=== PATIENT | male | born 1970 | race African-American/Black ===

== ENCOUNTER 2016-03-28 01:56 | Inpatient (IN) | payer OTHER ==
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
[2016-03-28 02:34] VITALS: BMI 39.5
[2016-03-28] MEDS ORDERED: chlordiazePOXIDE HCL 25 MG CAPSULE PO PRN (02:36)
[2016-03-28] MEDS ORDERED: chlordiazePOXIDE HCL 25 MG CAPSULE PO ONE (02:36)
[2016-03-28] MEDS ORDERED: diphenhydrAMINE HCL 50 MG CAPSULE PO PRN (02:37)
[2016-03-28] MEDS ORDERED: MAGNESIUM CITRATE 300 ML BOTTLE PO PRN (02:37)
[2016-03-28] MEDS ORDERED: ACETAMINOPHEN 325 MG TABLET (FP) PO PRN (02:37)
[2016-03-28] MEDS ORDERED: MAG HYDROX/AL HYDROX/SIMETH 30 ML UNIT-DOSE CUP PO PRN (02:37)
[2016-03-28] MEDS ORDERED: P-EPHED 60MG/TRIPROLIDI 2.5MG TABLET PO PRN (02:37)
[2016-03-28] MEDS ORDERED: MAGNESIUM HYDROX 2400MG/30ML ORAL SUSPENSION 30 ML CUP PO PRN (02:37)
[2016-03-28] MEDS ORDERED: MENTHOL/PHENOL 1 EACH UD MM PRN (02:37)
[2016-03-28] MEDS ORDERED: hydrOXYzine PAMOATE 50 MG CAPSULE (FP) PO PRN (02:37)
[2016-03-28] MEDS ORDERED: guaiFENesin/D-METHORPHAN HB 10 ML UNIT-DOSE CUPS PO PRN (02:37)
[2016-03-28] MEDS ORDERED: LOPERAMIDE HCL 2 MG CAPSULE PO PRN (02:37)
[2016-03-28] MEDS ORDERED: IBUPROFEN 400 MG TABLET (FP) PO PRN (02:37)
[2016-03-28] MEDS: chlordiazePOXIDE HCL 25 MG CAPSULE PO SCH ×4 (05:44→22:39)
[2016-03-28] MEDS: PRENATAL VITAMINS W/ FOLIC ACID TABLET (FP) PO SCH (10:31)
--- NOTE | 2016-03-28 15:14 | PN ---
S CIWA - CIWA Score Nausea/Vomitin-Mild Nausea/No Vomiting Muscle Tremors: 2 Anxiety: 3 Agitation: 2 Paroxysmal Sweats: 3 Orientation: 1-Uncertain about Date Tacttile Disturbances: 1-Very Mild Itch/Numbness Auditory Disturbances: 0-None Visual Disturbances: 2-Mild Sensitivity Headache: 0-None Present CIWA-Ar Total Score: 15 BHS Progress Note (SOAP) Subjective: Sweating, Body aches, Interrupted sleep, Diarrhea. Objective: 03/28/16 15:13 Vital Signs Temperature 97.7 F 03/28/16 13:59 Pulse Rate 83 03/28/16 13:59 Respiratory Rate 18 03/28/16 13:59 Blood Pressure 112/77 03/28/16 13:59 O2 Sat by Pulse Oximetry (%) NO LABS AVAILABLE YET. 03/28/16 15:13 Assessment: 03/28/16 15:13 WITHDRAWAL SYMPTOMS. Plan: CONTINUE DETOX. PRN IMMODIUM FOR DIARRHEA.
[2016-03-28] MEDS ORDERED: INFLUENZA VACCINE 45 MCG/0.5 ML (MDV 16-17) IM ONE (16:15)
[2016-03-28] MEDS: THIAMINE HCL 100 MG TABLET (FP) PO SCH (22:39)
[2016-03-28 22:59] LABS: URINE APPEARANCE CLEAR; URINE BILIRUBIN NEGATIVE (NEGATIVE); URINE BLOOD NEGATIVE (NEGATIVE); URINE COLOR YELLOW; URINE GLUCOSE (UA) NEGATIVE (NEGATIVE); URINE KETONE NEGATIVE (NEGATIVE); URINE LEUK ESTERASE NEGATIVE (NEGATIVE); URINE NITRITE NEGATIVE (NEGATIVE); URINE PROTEIN NEGATIVE (NEGATIVE); URINE UROBILINOGEN NEGATIVE E.U./dl (0.2-1.0)
[2016-03-29] MEDS: chlordiazePOXIDE HCL 25 MG CAPSULE PO SCH ×4 (05:32→22:33)
[2016-03-29 10:29] LABS: MCH 28.6 pg (25.7-33.7); MCHC 33.4 g/dl (32.0-35.9); MEAN CELL VOLUME 85.6 fl (80-96); MEAN PLT VOLUME 8.4 fl (7.5-11.1); PLATELET COUNT 212 K/MM3 (134-434); RDW 16.1 % (11.9-15.9); WHITE BLOOD COUNT 4.9 K/mm3 (4.0-10.0)
[2016-03-29] MEDS: PRENATAL VITAMINS W/ FOLIC ACID TABLET (FP) PO SCH (11:06)
[2016-03-29 11:20] LABS: ALBUMIN 3.5 g/dl (3.4-5.0); ALK PHOS 102 U/L (45-117); ANION GAP 8 (8-16); BILIRUBIN,TOTAL 1.2 mg/dL (0.2-1.0); CALCIUM 8.8 mg/dL (8.5-10.1); CO2 26 mmol/L (21-32); CREATININE 1.2 mg/dL (0.7-1.3); GLUCOSE,RANDOM 85 mg/dL (74-106); SGOT/AST 35 U/L (15-37); SGPT/ALT 44 U/L (12-78); TOT PROT 7.4 g/dl (6.4-8.2)
--- NOTE | 2016-03-29 14:33 | PN ---
S CIWA - CIWA Score Nausea/Vomitin-No Nausea/No Vomiting Muscle Tremors: 3 Anxiety: 3 Agitation: 3 Paroxysmal Sweats: 3 Orientation: 0-Oriented Tacttile Disturbances: 0-None Auditory Disturbances: 0-None Visual Disturbances: 0-None Headache: 0-None Present CIWA-Ar Total Score: 12 S Progress Note (SOAP) Subjective: ANXIETY,TREMORS,SWEATING,INTERRUPTED SLEEP,RESTLESS Objective: 03/29/16 14:32 Vital Signs - 8 hr 03/29/16 10:49 Temperature 98.6 F Pulse Rate 70 Respiratory 20 Rate Blood Pressure 140/86 Laboratory Tests 03/28/16 03/29/16 03/29/16 22:45 07:15 07:15 WBC 4.9 RBC 5.15 Hgb 14.7 Hct 44.0 MCV 85.6 MCHC 33.4 RDW 16.1 H D Plt Count 212 D MPV 8.4 Sodium 138 Potassium 3.7 Chloride 104 Carbon Dioxide 26 Anion Gap 8 BUN 15 D Creatinine 1.2 Creat Clearance w eGFR > 60 Random Glucose 85 Calcium 8.8 Total Bilirubin 1.2 H D AST 35 D ALT 44 D Alkaline Phosphatase 102 Total Protein 7.4 Albumin 3.5 Urine Color Yellow Urine Appearance Clear Urine pH 5.0 Ur Specific [place] 1.028 Urine Protein Negative Urine Glucose (UA) Negative Urine Ketones Negative Urine Blood Negative Urine Nitrite Negative Urine Bilirubin Negative Urine Urobilinogen Negative Ur Leukocyte Esterase Negative LABS NOTED Assessment: 03/29/16 14:32 WITHDRAWAL SX. Plan: CONTINUE DETOX
[2016-03-29 15:28] LABS: HIV 1 & 2 AB NEGATIVE; HIV 1 AGp24 NEGATIVE
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
[2016-03-29] MEDS: QUEtiapine FUMARATE 50 MG TABLET PO SCH (22:33)
[2016-03-29] MEDS: THIAMINE HCL 100 MG TABLET (FP) PO SCH (22:33)
[2016-03-30] MEDS: chlordiazePOXIDE 5 MG CAPSULE PO SCH ×4 (05:24→22:28)
[2016-03-30] MEDS: PRENATAL VITAMINS W/ FOLIC ACID TABLET (FP) PO SCH (10:14)
--- NOTE | 2016-03-30 12:43 | PN ---
BHS Progress Note (SOAP) Subjective: SWEATING,INTERRUPTED SLEEP,RESTLESS Objective: 03/30/16 12:42 Vital Signs - 8 hr 03/30/16 03/30/16 06:47 10:54 Temperature 98.1 F 96.4 F L Pulse Rate 80 80 Respiratory 16 20 Rate Blood Pressure 113/80 123/78 Assessment: 03/30/16 12:42 WITHDRAWAL SX. Plan: CONTINUE DETOX
[2016-03-30] MEDS: THIAMINE HCL 100 MG TABLET (FP) PO SCH (22:27)
[2016-03-30] MEDS: QUEtiapine FUMARATE 50 MG TABLET PO SCH (22:28)
[2016-03-31] MEDS: chlordiazePOXIDE HCL 10 MG CAPSULE PO SCH ×4 (05:45→22:21)
[2016-03-31] MEDS: PRENATAL VITAMINS W/ FOLIC ACID TABLET (FP) PO SCH (10:10)
--- NOTE | 2016-03-31 11:34 | PN ---
S Progress Note (SOAP) Subjective: ALERT,IRRITABLE,ANXIOUS,INTERRUPTED SLEEP, Objective: 03/31/16 11:33 Vital Signs Temperature 96.3 F L 03/31/16 09:50 Pulse Rate 84 03/31/16 09:50 Respiratory Rate 18 03/31/16 09:50 Blood Pressure 101/69 03/31/16 09:50 O2 Sat by Pulse Oximetry (%) Assessment: 03/31/16 11:33 WITHDRAWAL SYMPTOM Plan: CONTINUE DETOX,DISCHARGE IN AM
[2016-03-31] MEDS: QUEtiapine FUMARATE 50 MG TABLET PO SCH (22:21)
[2016-03-31] MEDS: THIAMINE HCL 100 MG TABLET (FP) PO SCH (22:21)
--- NOTE | 2016-04-01 08:44 | PN ---
S Progress Note (SOAP) Subjective: ALERT,NO COMPLAINT Objective: 04/01/16 08:43 Vital Signs Temperature 97.9 F 04/01/16 06:32 Pulse Rate 87 04/01/16 06:32 Respiratory Rate 18 04/01/16 06:32 Blood Pressure 123/82 04/01/16 06:32 O2 Sat by Pulse Oximetry (%) Assessment: 04/01/16 08:43 DETOX COMPLETED,NO WITHDRAWAL SYMPTOM Plan: DISCHARGE TODAY,FOLLOW UP WITH AFTER CARE PROGRAM ARRANGEMENT
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
[2016-04-01 09:49] VITALS: BP 125/84; PULSE 78; TEMP 96.6
== END 2016-04-01 09:00 | disposition home or self-care (01) | DRG 774 ==
LOC: YASAS 01:56 → Y3N 02:00
PROVIDERS: ADMIT Internal Medicine; ATTEND Internal Medicine
PROC: HZ2ZZZZ Detoxification Services for Substance Abuse Treatment (ICD-10-PCS; principal; 2016-03-28)
DX: F10.230 Alcohol dependence with withdrawal, uncomplicated (principal); F14.20 Cocaine dependence, uncomplicated; F19.24 Other psychoactive substance dependence with psychoactive substance-induced mood disorder; F33.9 Major depressive disorder, recurrent, unspecified; J45.909 Unspecified asthma, uncomplicated; G47.00 Insomnia, unspecified; E66.9 Obesity, unspecified; Z68.39 Body mass index [BMI] 39.0-39.9, adult; Z86.79 Personal history of other diseases of the circulatory system; Z91.5 Personal history of self-harm
CPT/HCPCS: 36415; 80053; 81003; 85027; 86593; 87389; 93005; 93010

== ENCOUNTER 2016-05-09 01:05 | Inpatient (IN) | payer OTHER ==
[2016-05-09 01:21] VITALS: BMI 41.3
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
[2016-05-09] MEDS ORDERED: ACETAMINOPHEN 325 MG TABLET (FP) PO PRN (01:31)
[2016-05-09] MEDS ORDERED: hydrOXYzine PAMOATE 50 MG CAPSULE (FP) PO PRN (01:31)
[2016-05-09] MEDS ORDERED: MAG HYDROX/AL HYDROX/SIMETH 30 ML UNIT-DOSE CUP PO PRN (01:31)
[2016-05-09] MEDS ORDERED: MAGNESIUM HYDROX 2400MG/30ML ORAL SUSPENSION 30 ML CUP PO PRN (01:31)
[2016-05-09] MEDS ORDERED: IBUPROFEN 400 MG TABLET (FP) PO PRN (01:31)
[2016-05-09] MEDS ORDERED: P-EPHED 60MG/TRIPROLIDI 2.5MG TABLET PO PRN (01:31)
[2016-05-09] MEDS ORDERED: chlordiazePOXIDE HCL 25 MG CAPSULE PO PRN (01:31)
[2016-05-09] MEDS ORDERED: diphenhydrAMINE HCL 50 MG CAPSULE PO PRN (01:31)
[2016-05-09] MEDS ORDERED: guaiFENesin/D-METHORPHAN HB 10 ML UNIT-DOSE CUPS PO PRN (01:31)
[2016-05-09] MEDS ORDERED: LOPERAMIDE HCL 2 MG CAPSULE PO PRN (01:31)
[2016-05-09] MEDS ORDERED: MENTHOL/PHENOL 1 EACH UD MM PRN (01:31)
[2016-05-09] MEDS ORDERED: MAGNESIUM CITRATE 300 ML BOTTLE PO PRN (01:31)
[2016-05-09] MEDS ORDERED: ALBUTEROL SO4 6.7 GM HFA INHALER IH PRN (01:37)
[2016-05-09] MEDS: chlordiazePOXIDE HCL 25 MG CAPSULE PO SCH ×4 (05:40→22:24)
[2016-05-09] MEDS: PRENATAL VITAMINS W/ FOLIC ACID TABLET (FP) PO SCH (10:05)
--- NOTE | 2016-05-09 15:07 | PN ---
[facility]HS CIWA - CIWA Score Nausea/Vomitin-Mild Nausea/No Vomiting Muscle Tremors: 3 Anxiety: 4-Mod. Anxious/Guarded Agitation: 3 Paroxysmal Sweats: 1-Minimal Palms Moist Orientation: 0-Oriented Tacttile Disturbances: 0-None Auditory Disturbances: 1-Very Mild Visual Disturbances: 0-None Headache: 2-Mild CIWA-Ar Total Score: 15 BHS Progress Note (SOAP) Subjective: Sweating, nausea, tremor, interrupted sleep, anxious Objective: 05/09/16 15:05 Last Vital Signs Temp Pulse Resp BP Pulse Ox 97.5 F L 80 18 110/75 05/09/16 13:37 05/09/16 13:37 05/09/16 13:37 05/09/16 13:37 Lab results from 03/29/16 noted; admission labs scheduled for 05/10/16 Assessment: 05/09/16 15:06 Withdrawal symptoms Plan: Continue detox
[2016-05-09] MEDS: THIAMINE HCL 100 MG TABLET (FP) PO SCH (22:23)
[2016-05-10] MEDS: chlordiazePOXIDE HCL 25 MG CAPSULE PO SCH ×4 (05:42→23:35)
[2016-05-10 09:55] LABS: MCH 27.6 pg (25.7-33.7); MCHC 32.5 g/dl (32.0-35.9); MEAN CELL VOLUME 84.9 fl (80-96); MEAN PLT VOLUME 8.2 fl (7.5-11.1); PLATELET COUNT 177 K/MM3 (134-434); RDW 15.7 % (11.9-15.9); WHITE BLOOD COUNT 4.1 K/mm3 (4.0-10.0)
[2016-05-10 09:59] LABS: ALBUMIN 3.4 g/dl (3.4-5.0); ANION GAP 8 (8-16); CALCIUM 8.9 mg/dL (8.5-10.1); CO2 28 mmol/L (21-32); CREATININE 1.3 mg/dL (0.7-1.3); GLUCOSE,RANDOM 88 mg/dL (74-106); SGOT/AST 36 U/L (15-37); SGPT/ALT 53 U/L (12-78)
[2016-05-10 10:01] LABS: ALK PHOS 101 U/L (45-117); BILIRUBIN,TOTAL 0.9 mg/dL (0.2-1.0)
[2016-05-10] MEDS: PRENATAL VITAMINS W/ FOLIC ACID TABLET (FP) PO SCH (10:15)
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
--- NOTE | 2016-05-10 12:13 | EKG ---
Test Reason : Blood Pressure : / mmHG Vent. Rate : 061 BPM Atrial Rate : 061 BPM P-R Int : 218 ms QRS Dur : 080 ms QT Int : 436 ms P-R-T Axes : 022 051 034 degrees QTc Int : 438 ms SINUS RHYTHM WITH 1ST DEGREE A-V BLOCK NONSPECIFIC T WAVE ABNORMALITY ABNORMAL ECG NO PREVIOUS ECGS AVAILABLE Confirmed by BRODERICK MATHEWS MD ([id number]) on 05/10/2016 12:13:00 PM Referred By: Confirmed By:BRODERICK MATHEWS MD
[2016-05-10] MEDS: CITALOPRAM HYDROBROMIDE 20 MG TABLET (FP) PO SCH (12:29)
--- NOTE | 2016-05-10 14:18 | PN ---
[facility] CIWA - CIWA Score Nausea/Vomitin-No Nausea/No Vomiting Muscle Tremors: 4-Moderate,w/Arms Extend Anxiety: 3 Agitation: 3 Paroxysmal Sweats: 3 Orientation: 0-Oriented Tacttile Disturbances: 0-None Auditory Disturbances: 0-None Visual Disturbances: 0-None Headache: 0-None Present CIWA-Ar Total Score: 13 BHS Progress Note (SOAP) Subjective: sweating,interrupted sleep,restless,tremors,anxiety Objective: 05/10/16 14:17 Vital Signs - 8 hr 05/10/16 05/10/16 06:24 10:20 Temperature 96.4 F L 96.3 F L Pulse Rate 62 63 Respiratory 18 20 Rate Blood Pressure 116/86 125/87 Laboratory Tests 05/10/16 05/10/16 05/10/16 07:00 07:00 07:00 WBC 4.1 RBC 5.24 Hgb 14.4 Hct 44.5 MCV 84.9 MCHC 32.5 RDW 15.7 Plt Count 177 MPV 8.2 Sodium 140 Potassium 3.5 Chloride 104 Carbon Dioxide 28 Anion Gap 8 BUN 13 Creatinine 1.3 Creat Clearance w eGFR > 60 Random Glucose 88 Calcium 8.9 Total Bilirubin 0.9 D AST 36 ALT 53 D Alkaline Phosphatase 101 Total Protein 7.0 Albumin 3.4 RPR Titer Nonreactive labs noted Assessment: 05/10/16 14:17 withdrawal sx. Plan: continue detox
[2016-05-10] MEDS: QUEtiapine FUMARATE 100 MG TABLET (FP) PO SCH (23:35)
[2016-05-10] MEDS: THIAMINE HCL 100 MG TABLET (FP) PO SCH (23:36)
[2016-05-11] MEDS: chlordiazePOXIDE 5 MG CAPSULE PO SCH ×4 (06:06→22:04)
--- NOTE | 2016-05-11 09:57 | PN ---
BHS Progress Note (SOAP) Subjective: sweating,interrupted sleep,restless Objective: 05/11/16 09:56 Vital Signs - 8 hr 05/11/16 05/11/16 03:30 09:52 Temperature 97.1 F L Pulse Rate 60 Respiratory 18 18 Rate Blood Pressure 122/92 Laboratory Tests 05/10/16 05/10/16 05/10/16 07:00 07:00 07:00 WBC 4.1 RBC 5.24 Hgb 14.4 Hct 44.5 MCV 84.9 MCHC 32.5 RDW 15.7 Plt Count 177 MPV 8.2 Sodium 140 Potassium 3.5 Chloride 104 Carbon Dioxide 28 Anion Gap 8 BUN 13 Creatinine 1.3 Creat Clearance w eGFR > 60 Random Glucose 88 Calcium 8.9 Total Bilirubin 0.9 D AST 36 ALT 53 D Alkaline Phosphatase 101 Total Protein 7.0 Albumin 3.4 Urine Color Urine Appearance Urine pH Ur Specific [place] Urine Protein Urine Glucose (UA) Urine Clinitest Urine Ketones Urine Blood Urine Nitrite Urine Bilirubin Urine Ictotest Prot Sulfosalicylic Acd Urine Urobilinogen Ur Leukocyte Esterase RPR Titer Nonreactive 05/10/16 12:30 WBC RBC Hgb Hct MCV MCHC RDW Plt Count MPV Sodium Potassium Chloride Carbon Dioxide Anion Gap BUN Creatinine Creat Clearance w eGFR Random Glucose Calcium Total Bilirubin AST ALT Alkaline Phosphatase Total Protein Albumin Urine Color Cancelled Urine Appearance Cancelled Urine pH Cancelled Ur Specific [place] Cancelled Urine Protein Cancelled Urine Glucose (UA) Cancelled Urine Clinitest Cancelled Urine Ketones Cancelled Urine Blood Cancelled Urine Nitrite Cancelled Urine Bilirubin Cancelled Urine Ictotest Cancelled Prot Sulfosalicylic Acd Cancelled Urine Urobilinogen Cancelled Ur Leukocyte Esterase Cancelled RPR Titer labs noted Assessment: 05/11/16 09:57 withdrawal sx. Plan: continue detox
[2016-05-11] MEDS: CITALOPRAM HYDROBROMIDE 20 MG TABLET (FP) PO SCH (10:10)
[2016-05-11] MEDS: PRENATAL VITAMINS W/ FOLIC ACID TABLET (FP) PO SCH (10:10)
[2016-05-11] MEDS: QUEtiapine FUMARATE 100 MG TABLET (FP) PO SCH (22:05)
[2016-05-11] MEDS: THIAMINE HCL 100 MG TABLET (FP) PO SCH (22:05)
[2016-05-12] MEDS ORDERED: chlordiazePOXIDE HCL 10 MG CAPSULE PO SCH (05:00)
[2016-05-12 06:45] VITALS: BP 100/68; PULSE 91; TEMP 96.7
--- NOTE | 2016-05-12 17:28 | DS ---
[facility] Detox Discharge Summary Admission Date: 05/09/16 Discharge Date: 05/12/16 - History Present History: Alcohol Dependence, Cocaine Dependence Pertinent Past History: asthma depression - Physical Exam Results Vital Signs: Vital Signs Temperature 96.7 F L 05/12/16 06:45 Pulse Rate 91 H 05/12/16 06:45 Respiratory Rate 18 05/12/16 06:45 Blood Pressure 100/68 05/12/16 06:45 O2 Sat by Pulse Oximetry (%) Pertinent Admission Physical Exam Findings: Withdrawal sx. Laboratory Tests 05/10/16 05/10/16 05/10/16 07:00 07:00 07:00 WBC 4.1 RBC 5.24 Hgb 14.4 Hct 44.5 MCV 84.9 MCHC 32.5 RDW 15.7 Plt Count 177 MPV 8.2 Sodium 140 Potassium 3.5 Chloride 104 Carbon Dioxide 28 Anion Gap 8 BUN 13 Creatinine 1.3 Creat Clearance w eGFR > 60 Random Glucose 88 Calcium 8.9 Total Bilirubin 0.9 D AST 36 ALT 53 D Alkaline Phosphatase 101 Total Protein 7.0 Albumin 3.4 Urine Color Urine Appearance Urine pH Ur Specific [place] Urine Protein Urine Glucose (UA) Urine Clinitest Urine Ketones Urine Blood Urine Nitrite Urine Bilirubin Urine Ictotest Prot Sulfosalicylic Acd Urine Urobilinogen Ur Leukocyte Esterase RPR Titer Nonreactive 05/10/16 12:30 WBC RBC Hgb Hct MCV MCHC RDW Plt Count MPV Sodium Potassium Chloride Carbon Dioxide Anion Gap BUN Creatinine Creat Clearance w eGFR Random Glucose Calcium Total Bilirubin AST ALT Alkaline Phosphatase Total Protein Albumin Urine Color Cancelled Urine Appearance Cancelled Urine pH Cancelled Ur Specific [place] Cancelled Urine Protein Cancelled Urine Glucose (UA) Cancelled Urine Clinitest Cancelled Urine Ketones Cancelled Urine Blood Cancelled Urine Nitrite Cancelled Urine Bilirubin Cancelled Urine Ictotest Cancelled Prot Sulfosalicylic Acd Cancelled Urine Urobilinogen Cancelled Ur Leukocyte Esterase Cancelled RPR Titer labs noted - Treatment Hospital Course: Detox Protocol Followed, Detoxed Safely, Responded well, Discharged Condition Good, Rehab Referral Accepted - Medication Discharge Medications: Ambulatory Orders Quetiapine Fumarate [Seroquel] 100 mg PO HS 05/09/16 Citalopram Hydrobromide [Celexa -] 20 mg PO DAILY #30 tablet 05/12/16 Quetiapine Fumarate [Seroquel] 100 mg PO HS #30 tablet 05/12/16 - Diagnosis (1) Alcohol dependence with uncomplicated withdrawal Status: Acute (2) Cocaine dependence Status: Acute Qualifiers: Substance use status: uncomplicated Qualified Code(s): F14.20 - Cocaine dependence, uncomplicated (3) Drug-induced mood disorder Status: Acute (4) Asthma Status: Chronic Qualifiers: Asthma severity: mild intermittent Asthma complication type: uncomplicated Qualified Code(s): J45.20 - Mild intermittent asthma, uncomplicated (5) MDD (major depressive disorder) Status: Chronic (6) Obesity Status: Chronic Qualifiers: Obesity type: due to excess calories Obesity severity: morbid Qualified Code(s): E66.01 - Morbid (severe) obesity due to excess calories (7) Insomnia Status: Chronic Qualifiers: Insomnia type: alcohol-induced Qualified Code(s): F10.982 - Alcohol use, unspecified with alcohol-induced sleep disorder - AMA Did Patient Leave Against Medical Advice: No
== END 2016-05-12 09:22 | disposition home or self-care (01) | DRG 774 ==
LOC: YASAS 01:05 → Y3N 01:40
PROVIDERS: ADMIT Internal Medicine; ATTEND Psychiatry & Neurology Psychiatry
PROC: HZ2ZZZZ Detoxification Services for Substance Abuse Treatment (ICD-10-PCS; principal; 2016-05-12)
DX: F10.230 Alcohol dependence with withdrawal, uncomplicated (principal); F14.20 Cocaine dependence, uncomplicated; F33.9 Major depressive disorder, recurrent, unspecified; F10.282 Alcohol dependence with alcohol-induced sleep disorder; F19.24 Other psychoactive substance dependence with psychoactive substance-induced mood disorder; E66.01 Morbid (severe) obesity due to excess calories; Z68.41 Body mass index [BMI] 40.0-44.9, adult
CPT/HCPCS: 36415; 80053; 85027; 86593; 93005; 93010

== ENCOUNTER 2016-11-01 08:19 | Inpatient (IN) | payer OTHER ==
[2016-11-01 08:48] VITALS: BMI 39.4
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
[2016-11-01] MEDS ORDERED: hydrOXYzine PAMOATE 50 MG CAPSULE (FP) PO PRN (11:22)
[2016-11-01] MEDS ORDERED: diphenhydrAMINE HCL 50 MG CAPSULE PO PRN (11:22)
[2016-11-01] MEDS ORDERED: ACETAMINOPHEN 325 MG TABLET (FP) PO PRN (11:22)
[2016-11-01] MEDS ORDERED: chlordiazePOXIDE HCL 25 MG CAPSULE PO PRN (11:22)
[2016-11-01] MEDS ORDERED: MENTHOL/PHENOL 1 EACH UD MM PRN (11:22)
[2016-11-01] MEDS ORDERED: LOPERAMIDE HCL 2 MG CAPSULE PO PRN (11:22)
[2016-11-01] MEDS ORDERED: MAGNESIUM CITRATE 300 ML BOTTLE PO PRN (11:22)
[2016-11-01] MEDS ORDERED: IBUPROFEN 400 MG TABLET (FP) PO PRN (11:22)
[2016-11-01] MEDS ORDERED: P-EPHED 60MG/TRIPROLIDI 2.5MG TABLET PO PRN (11:22)
[2016-11-01] MEDS ORDERED: guaiFENesin/D-METHORPHAN HB 10 ML UNIT-DOSE CUPS PO PRN (11:22)
[2016-11-01] MEDS ORDERED: MAG HYDROX/AL HYDROX/SIMETH 30 ML UNIT-DOSE CUP PO PRN (11:22)
[2016-11-01] MEDS ORDERED: MAGNESIUM HYDROX 2400MG/30ML ORAL SUSPENSION 30 ML CUP PO PRN (11:22)
[2016-11-01] MEDS ORDERED: chlordiazePOXIDE HCL 25 MG CAPSULE PO ONE (12:47)
[2016-11-01] MEDS: chlordiazePOXIDE HCL 25 MG CAPSULE PO SCH ×3 (13:21→22:25)
[2016-11-01 15:26] LABS: MCH 28.3 pg (25.7-33.7); MCHC 33.3 g/dl (32.0-35.9); MEAN PLT VOLUME 8.7 fl (7.5-11.1); PLATELET COUNT 244 K/MM3 (134-434); RDW 15.7 % (11.9-15.9); WHITE BLOOD COUNT 6.7 K/mm3 (4.0-10.0)
[2016-11-01 15:32] LABS: ALK PHOS 99 U/L (45-117); ANION GAP 10 (8-16); BILIRUBIN,TOTAL 1.4 mg/dL (0.2-1.0); CALCIUM 8.8 mg/dL (8.5-10.1); CO2 27 mmol/L (21-32); CREATININE 1.3 mg/dL (0.7-1.3); GLUCOSE,RANDOM 67 mg/dL (74-106); SGOT/AST 35 U/L (15-37); SGPT/ALT 53 U/L (12-78)
[2016-11-01] MEDS: THIAMINE HCL 100 MG TABLET (FP) PO SCH (22:25)
[2016-11-01 22:47] LABS: URINE APPEARANCE CLEAR; URINE BILIRUBIN NEGATIVE (NEGATIVE); URINE BLOOD NEGATIVE (NEGATIVE); URINE COLOR YELLOW; URINE GLUCOSE (UA) NEGATIVE (NEGATIVE); URINE KETONE NEGATIVE (NEGATIVE); URINE LEUK ESTERASE NEGATIVE (NEGATIVE); URINE NITRITE NEGATIVE (NEGATIVE); URINE PROTEIN NEGATIVE (NEGATIVE); URINE UROBILINOGEN NEGATIVE mg/dL (0.2-1.0)
[2016-11-02] MEDS: chlordiazePOXIDE HCL 25 MG CAPSULE PO SCH ×4 (05:43→22:28)
[2016-11-02 09:42] LABS: HIV 1 & 2 AB NEGATIVE; HIV 1 AGp24 NEGATIVE
--- NOTE | 2016-11-02 11:04 | PN ---
[facility] CIWA - CIWA Score Nausea/Vomitin Muscle Tremors: 3 Anxiety: 3 Agitation: 2 Paroxysmal Sweats: 1-Minimal Palms Moist Orientation: 0-Oriented Tacttile Disturbances: 1-Very Mild Itch/Numbness Auditory Disturbances: 1-Very Mild Visual Disturbances: 0-None Headache: 2-Mild CIWA-Ar Total Score: 16 S Progress Note (SOAP) Subjective: ALERT,IRRITABLE,ANXIOUS,INTERRUPTED SLEEP,TREMOR Objective: 11/02/16 11:01 Vital Signs Temperature 97.7 F 11/02/16 06:00 Pulse Rate 75 11/02/16 06:00 Respiratory Rate 18 11/02/16 06:00 Blood Pressure 114/57 11/02/16 06:00 O2 Sat by Pulse Oximetry (%) EKG SINUS BRADYCARDIA 54/MIN NO CHEST PAIN,NO SOB,NO DIZZINESS Laboratory Last Values WBC 6.7 K/mm3 (4.0-10.0) D 11/01/16 11:15 RBC 5.43 M/mm3 (4.00-5.60) 11/01/16 11:15 Hgb 15.3 GM/dL (11.7-16.9) 11/01/16 11:15 Hct 46.1 % (35.4-49) 11/01/16 11:15 MCV 85.0 fl (80-96) 11/01/16 11:15 MCH 28.3 pg (25.7-33.7) 11/01/16 11:15 MCHC 33.3 g/dl (32.0-35.9) 11/01/16 11:15 RDW 15.7 % (11.9-15.9) 11/01/16 11:15 Plt Count 244 K/MM3 (134-434) D 11/01/16 11:15 MPV 8.7 fl (7.5-11.1) 11/01/16 11:15 Sodium 136 mmol/L (136-145) 11/01/16 11:15 Potassium 3.8 mmol/L (3.5-5.1) 11/01/16 11:15 Chloride 99 mmol/L (98-107) 11/01/16 11:15 Carbon Dioxide 27 mmol/L (21-32) 11/01/16 11:15 Anion Gap 10 (8-16) 11/01/16 11:15 BUN 19 mg/dL (7-18) H D 11/01/16 11:15 Creatinine 1.3 mg/dL (0.7-1.3) 11/01/16 11:15 Creat Clearance w eGFR 59.97 (>60) 11/01/16 11:15 Random Glucose 67 mg/dL (74-106) L D 11/01/16 11:15 Calcium 8.8 mg/dL (8.5-10.1) 11/01/16 11:15 Total Bilirubin 1.4 mg/dL (0.2-1.0) H D 11/01/16 11:15 AST 35 U/L (15-37) 11/01/16 11:15 ALT 53 U/L (12-78) 11/01/16 11:15 Alkaline Phosphatase 99 U/L (45-117) 11/01/16 11:15 Total Protein 8.0 g/dl (6.4-8.2) 11/01/16 11:15 Albumin 4.0 g/dl (3.4-5.0) 11/01/16 11:15 Urine Color Yellow 11/01/16 22:20 Urine Appearance Clear 11/01/16 22:20 Urine pH 5.0 (5.0-8.0) 11/01/16 22:20 Urine Protein Negative (NEGATIVE) 11/01/16 22:20 Urine Glucose (UA) Negative (NEGATIVE) 11/01/16 22:20 Urine Ketones Negative (NEGATIVE) 11/01/16 22:20 Urine Blood Negative (NEGATIVE) 11/01/16 22:20 Urine Nitrite Negative (NEGATIVE) 11/01/16 22:20 Urine Bilirubin Negative (NEGATIVE) 11/01/16 22:20 Urine Urobilinogen Negative mg/dL (0.2-1.0) 11/01/16 22:20 Ur Leukocyte Esterase Negative (NEGATIVE) 11/01/16 22:20 RPR Titer Nonreactive (NONREACTIVE) 11/01/16 11:15 Hepatitis C Antibody 0.1 s/co ratio (0.0-0.9) 11/01/16 11:15 HIV 1&2 Antibody Screen Negative 11/01/16 10:50 HIV P24 Antigen Negative 11/01/16 10:50 Assessment: 11/02/16 11:03 WITHDRAWAL SYMPTOM Plan: CONTINUE DETOX
[2016-11-02] MEDS: PRENATAL VITAMINS W/ FOLIC ACID TABLET (FP) PO SCH (11:10)
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
[2016-11-02] MEDS: QUEtiapine FUMARATE 50 MG TABLET PO SCH (22:27)
[2016-11-02] MEDS: THIAMINE HCL 100 MG TABLET (FP) PO SCH (22:28)
[2016-11-03] MEDS: chlordiazePOXIDE HCL 25 MG CAPSULE PO SCH (06:00)
[2016-11-03] MEDS: chlordiazePOXIDE 5 MG CAPSULE PO SCH ×3 (10:36→22:59)
[2016-11-03] MEDS: PRENATAL VITAMINS W/ FOLIC ACID TABLET (FP) PO SCH (10:36)
[2016-11-03] MEDS: CITALOPRAM HYDROBROMIDE 10 MG TABLET (FP) PO SCH (10:36)
--- NOTE | 2016-11-03 11:14 | PN ---
S CIWA - CIWA Score Nausea/Vomitin Muscle Tremors: 3 Anxiety: 3 Agitation: 2 Paroxysmal Sweats: 1-Minimal Palms Moist Orientation: 0-Oriented Tacttile Disturbances: 1-Very Mild Itch/Numbness Auditory Disturbances: 1-Very Mild Visual Disturbances: 0-None Headache: 2-Mild CIWA-Ar Total Score: 16 BHS Progress Note (SOAP) Subjective: ALERT,IRRITABLE,ANXIOUS,INTERRUPTED SLEEP,TREMOR Objective: 11/03/16 11:13 Vital Signs Temperature 96.8 F L 11/03/16 09:58 Pulse Rate 57 L 11/03/16 09:58 Respiratory Rate 18 11/03/16 09:58 Blood Pressure 114/77 11/03/16 09:58 O2 Sat by Pulse Oximetry (%) 11/03/16 11:13 Laboratory Last Values WBC 6.7 K/mm3 (4.0-10.0) D 11/01/16 11:15 RBC 5.43 M/mm3 (4.00-5.60) 11/01/16 11:15 Hgb 15.3 GM/dL (11.7-16.9) 11/01/16 11:15 Hct 46.1 % (35.4-49) 11/01/16 11:15 MCV 85.0 fl (80-96) 11/01/16 11:15 MCH 28.3 pg (25.7-33.7) 11/01/16 11:15 MCHC 33.3 g/dl (32.0-35.9) 11/01/16 11:15 RDW 15.7 % (11.9-15.9) 11/01/16 11:15 Plt Count 244 K/MM3 (134-434) D 11/01/16 11:15 MPV 8.7 fl (7.5-11.1) 11/01/16 11:15 Sodium 136 mmol/L (136-145) 11/01/16 11:15 Potassium 3.8 mmol/L (3.5-5.1) 11/01/16 11:15 Chloride 99 mmol/L (98-107) 11/01/16 11:15 Carbon Dioxide 27 mmol/L (21-32) 11/01/16 11:15 Anion Gap 10 (8-16) 11/01/16 11:15 BUN 19 mg/dL (7-18) H D 11/01/16 11:15 Creatinine 1.3 mg/dL (0.7-1.3) 11/01/16 11:15 Creat Clearance w eGFR 59.97 (>60) 11/01/16 11:15 Random Glucose 67 mg/dL (74-106) L D 11/01/16 11:15 Calcium 8.8 mg/dL (8.5-10.1) 11/01/16 11:15 Total Bilirubin 1.4 mg/dL (0.2-1.0) H D 11/01/16 11:15 AST 35 U/L (15-37) 11/01/16 11:15 ALT 53 U/L (12-78) 11/01/16 11:15 Alkaline Phosphatase 99 U/L (45-117) 11/01/16 11:15 Total Protein 8.0 g/dl (6.4-8.2) 11/01/16 11:15 Albumin 4.0 g/dl (3.4-5.0) 11/01/16 11:15 Urine Color Yellow 11/01/16 22:20 Urine Appearance Clear 11/01/16 22:20 Urine pH 5.0 (5.0-8.0) 11/01/16 22:20 Ur Specific [place] 1.025 (1.005-1.025) 11/01/16 22:20 Urine Protein Negative (NEGATIVE) 11/01/16 22:20 Urine Glucose (UA) Negative (NEGATIVE) 11/01/16 22:20 Urine Ketones Negative (NEGATIVE) 11/01/16 22:20 Urine Blood Negative (NEGATIVE) 11/01/16 22:20 Urine Nitrite Negative (NEGATIVE) 11/01/16 22:20 Urine Bilirubin Negative (NEGATIVE) 11/01/16 22:20 Urine Urobilinogen Negative mg/dL (0.2-1.0) 11/01/16 22:20 Ur Leukocyte Esterase Negative (NEGATIVE) 11/01/16 22:20 RPR Titer Nonreactive (NONREACTIVE) 11/01/16 11:15 Hepatitis C Antibody 0.1 s/co ratio (0.0-0.9) 11/01/16 11:15 HIV 1&2 Antibody Screen Negative 11/01/16 10:50 HIV P24 Antigen Negative 11/01/16 10:50 Assessment: 11/03/16 11:13 WITHDRAWAL SYMPTOM 11/03/16 11:14 Plan: CONTINUE DETOX
--- NOTE | 2016-11-03 14:52 | EKG ---
Test Reason : Blood Pressure : / mmHG Vent. Rate : 054 BPM Atrial Rate : 054 BPM P-R Int : 206 ms QRS Dur : 088 ms QT Int : 452 ms P-R-T Axes : 008 024 021 degrees QTc Int : 428 ms SINUS BRADYCARDIA OTHERWISE NORMAL ECG WHEN COMPARED WITH ECG OF 09-MAY-2016 02:22, NO SIGNIFICANT CHANGE WAS FOUND Confirmed by KRYSTEN PEREZ MD ([id number]) on 11/03/2016 2:51:50 PM Referred By: Confirmed By:KRYSTEN PEREZ MD
[2016-11-03] MEDS: QUEtiapine FUMARATE 50 MG TABLET PO SCH (22:59)
[2016-11-03] MEDS: THIAMINE HCL 100 MG TABLET (FP) PO SCH (22:59)
[2016-11-04] MEDS: chlordiazePOXIDE 5 MG CAPSULE PO SCH (05:15)
[2016-11-04 10:21] VITALS: BP 140/69; PULSE 61; TEMP 97.7
--- NOTE | 2016-11-04 10:37 | PN ---
S Progress Note (SOAP) Subjective: alert,no complaint Objective: 11/04/16 10:35 Vital Signs Temperature 97.7 F 11/04/16 10:21 Pulse Rate 61 11/04/16 10:21 Respiratory Rate 18 11/04/16 10:21 Blood Pressure 140/69 11/04/16 10:21 O2 Sat by Pulse Oximetry (%) Assessment: 11/04/16 10:36 stable for discharge Plan: discharge today,follow up with after care program [facility] arrangement
--- NOTE | 2016-11-04 10:42 | DS ---
[facility] Detox Discharge Summary Admission Date: 11/01/16 Discharge Date: 11/04/16 - History Present History: Alcohol Dependence, Cocaine Dependence Additional Comments: follow up with after care program as arrangement Pertinent Past History: asthma obesity - Physical Exam Results Vital Signs: Vital Signs Temperature 97.7 F 11/04/16 10:21 Pulse Rate 61 11/04/16 10:21 Respiratory Rate 18 11/04/16 10:21 Blood Pressure 140/69 11/04/16 10:21 O2 Sat by Pulse Oximetry (%) Pertinent Admission Physical Exam Findings: withdrawal symptom - Treatment Hospital Course: Detox Protocol Followed, Detoxed Safely, Responded well, Discharged Condition Good, Rehab Referral Accepted Patient has Accepted a Rehab Referral to: [facility] - Medication Discharge Medications: Ambulatory Orders Citalopram Hydrobromide [Celexa -] 20 mg PO DAILY #30 tablet 05/12/16 Quetiapine Fumarate [Seroquel] 100 mg PO HS #30 tablet 05/12/16 Albuterol Sulfate Inhaler - [Ventolin Hfa Inhaler -] 1 - 2 inh PO QID PRN Citalopram Hydrobromide [Celexa -] 20 mg PO DAILY #30 tablet 11/02/16 Quetiapine Fumarate [Seroquel] 100 mg PO HS #30 tablet 11/02/16 - Diagnosis (1) Alcohol dependence with uncomplicated withdrawal Current Visit: Yes Status: Acute (2) Cocaine dependence Current Visit: Yes Status: Acute Qualifiers: Substance use status: uncomplicated Qualified Code(s): F14.20 - Cocaine dependence, uncomplicated (3) Drug-induced mood disorder Current Visit: Yes Status: Acute (4) Insomnia Current Visit: Yes Status: Acute Qualifiers: Insomnia type: alcohol-induced Qualified Code(s): F10.982 - Alcohol use, unspecified with alcohol-induced sleep disorder (5) Asthma Current Visit: Yes Status: Chronic Qualifiers: Asthma severity: mild intermittent Asthma complication type: uncomplicated Qualified Code(s): J45.20 - Mild intermittent asthma, uncomplicated (6) Obesity Current Visit: Yes Status: Chronic Qualifiers: Obesity type: due to excess calories - AMA Did Patient Leave Against Medical Advice: No
[2016-11-04] MEDS: PRENATAL VITAMINS W/ FOLIC ACID TABLET (FP) PO SCH (10:50)
[2016-11-04] MEDS: CITALOPRAM HYDROBROMIDE 10 MG TABLET (FP) PO SCH (10:50)
[2016-11-04] MEDS ORDERED: chlordiazePOXIDE HCL 10 MG CAPSULE PO SCH (11:00)
== END 2016-11-04 10:55 | disposition home or self-care (01) | DRG 774 ==
LOC: YASAS 08:19 → Y6N 12:31
PROVIDERS: ADMIT Internal Medicine; ATTEND Internal Medicine
PROC: HZ2ZZZZ Detoxification Services for Substance Abuse Treatment (ICD-10-PCS; principal; 2016-11-01)
DX: F10.230 Alcohol dependence with withdrawal, uncomplicated (principal); F14.20 Cocaine dependence, uncomplicated; F19.24 Other psychoactive substance dependence with psychoactive substance-induced mood disorder; F33.9 Major depressive disorder, recurrent, unspecified; G47.00 Insomnia, unspecified; J45.20 Mild intermittent asthma, uncomplicated; E66.9 Obesity, unspecified; Z68.39 Body mass index [BMI] 39.0-39.9, adult; R00.1 Bradycardia, unspecified; Z87.891 Personal history of nicotine dependence; Z91.5 Personal history of self-harm
CPT/HCPCS: 36415; 80053; 81003; 85027; 86593; 86803; 87389; 93005; 93010

== ENCOUNTER 2017-04-10 08:36 | Inpatient (IN) | payer OTHER ==
[2017-04-10 09:05] VITALS: BMI 42.5
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
[2017-04-10] MEDS ORDERED: guaiFENesin/D-METHORPHAN HB 10 ML UNIT-DOSE CUPS PO PRN (09:37)
[2017-04-10] MEDS ORDERED: LOPERAMIDE HCL 2 MG CAPSULE PO PRN (09:37)
[2017-04-10] MEDS ORDERED: IBUPROFEN 400 MG TABLET (FP) PO PRN (09:37)
[2017-04-10] MEDS ORDERED: chlordiazePOXIDE HCL 25 MG CAPSULE PO ONE ×2 (09:37→12:30)
[2017-04-10] MEDS ORDERED: chlordiazePOXIDE HCL 25 MG CAPSULE PO PRN (09:37)
[2017-04-10] MEDS ORDERED: MAG HYDROX/AL HYDROX/SIMETH 30 ML UNIT-DOSE CUP PO PRN (09:37)
[2017-04-10] MEDS ORDERED: MAGNESIUM HYDROX 2400MG/30ML ORAL SUSPENSION 30 ML CUP PO PRN (09:37)
[2017-04-10] MEDS ORDERED: MAGNESIUM CITRATE 300 ML BOTTLE PO PRN (09:37)
[2017-04-10] MEDS ORDERED: ACETAMINOPHEN 325 MG TABLET (FP) PO PRN (09:37)
[2017-04-10] MEDS ORDERED: MENTHOL/PHENOL 1 EACH UD MM PRN (09:37)
[2017-04-10] MEDS ORDERED: hydrOXYzine PAMOATE 50 MG CAPSULE (FP) PO PRN (09:37)
[2017-04-10] MEDS ORDERED: P-EPHED 60MG/TRIPROLIDI 2.5MG TABLET PO PRN (09:37)
[2017-04-10] MEDS ORDERED: ALBUTEROL SO4 18 GM HFA INHALER IH PRN (09:39)
[2017-04-10] MEDS: PRENATAL VITAMINS W/ FOLIC ACID TABLET (FP) PO SCH (12:24)
[2017-04-10 16:37] LABS: URINE APPEARANCE CLEAR; URINE BILIRUBIN NEGATIVE (NEGATIVE); URINE BLOOD NEGATIVE (NEGATIVE); URINE COLOR YELLOW; URINE GLUCOSE (UA) NEGATIVE (NEGATIVE); URINE KETONE NEGATIVE (NEGATIVE); URINE LEUK ESTERASE NEGATIVE (NEGATIVE); URINE NITRITE NEGATIVE (NEGATIVE); URINE PROTEIN NEGATIVE (NEGATIVE)
[2017-04-10] MEDS: chlordiazePOXIDE HCL 25 MG CAPSULE PO SCH ×2 (17:15→22:16)
[2017-04-10] MEDS: THIAMINE HCL 100 MG TABLET (FP) PO SCH (22:16)
[2017-04-11] MEDS: chlordiazePOXIDE HCL 25 MG CAPSULE PO SCH ×4 (05:20→22:10)
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
[2017-04-11] MEDS: PRENATAL VITAMINS W/ FOLIC ACID TABLET (FP) PO SCH (10:12)
[2017-04-11] MEDS: BACITRACIN 0.9 GM PACKET TP SCH ×2 (10:12→22:10)
--- NOTE | 2017-04-11 10:39 | EKG ---
Test Reason : Blood Pressure : / mmHG Vent. Rate : 061 BPM Atrial Rate : 061 BPM P-R Int : 192 ms QRS Dur : 090 ms QT Int : 414 ms P-R-T Axes : 003 037 008 degrees QTc Int : 416 ms NORMAL SINUS RHYTHM NONSPECIFIC T WAVE ABNORMALITY ABNORMAL ECG WHEN COMPARED WITH ECG OF 01-NOV-2016 13:07, T WAVE INVERSION NOW EVIDENT IN ANTERIOR LEADS Confirmed by BRODERICK MATHEWS MD ([id number]) on 04/11/2017 10:39:28 AM Referred By: Confirmed By:BRODERICK MATHEWS MD
[2017-04-11] MEDS: CITALOPRAM HYDROBROMIDE 20 MG TABLET (FP) PO SCH (11:52)
--- NOTE | 2017-04-11 12:19 | PN ---
S CIWA - CIWA Score Nausea/Vomitin-No Nausea/No Vomiting Muscle Tremors: 4-Moderate,w/Arms Extend Anxiety: 4-Mod. Anxious/Guarded Agitation: 4-Moderately Restless Paroxysmal Sweats: 1-Minimal Palms Moist Orientation: 0-Oriented Tacttile Disturbances: 3-Moderate Itch/Numb/Burn Auditory Disturbances: 0-None Visual Disturbances: 0-None Headache: 0-None Present CIWA-Ar Total Score: 16 BHS Progress Note (SOAP) Subjective: ANXIETY,SWEATS, FATIGUE. Objective: 04/11/17 12:18 Vital Signs Temperature 97.6 F 04/11/17 09:20 Pulse Rate 76 04/11/17 09:20 Respiratory Rate 18 04/11/17 09:20 Blood Pressure 107/67 04/11/17 09:20 O2 Sat by Pulse Oximetry (%) Laboratory Last Values Urine Color Yellow 04/10/17 15:33 Urine Appearance Clear 04/10/17 15:33 Urine pH 5.0 (5.0-8.0) 04/10/17 15:33 Ur Specific [place] 1.021 (1.001-1.035) 04/10/17 15:33 Urine Protein Negative (NEGATIVE) 04/10/17 15:33 Urine Glucose (UA) Negative (NEGATIVE) 04/10/17 15:33 Urine Ketones Negative (NEGATIVE) 04/10/17 15:33 Urine Blood Negative (NEGATIVE) 04/10/17 15:33 Urine Nitrite Negative (NEGATIVE) 04/10/17 15:33 Urine Bilirubin Negative (NEGATIVE) 04/10/17 15:33 Urine Urobilinogen 2.0 mg/dL (0.2-1.0) 04/10/17 15:33 Ur Leukocyte Esterase Negative (NEGATIVE) 04/10/17 15:33 Assessment: 04/11/17 12:18 WITHDRAWAL SX Plan: CONTINUE DETOX
[2017-04-11] MEDS: THIAMINE HCL 100 MG TABLET (FP) PO SCH (22:10)
[2017-04-11] MEDS: QUEtiapine FUMARATE 100 MG TABLET (FP) PO SCH (22:10)
[2017-04-12] MEDS: chlordiazePOXIDE HCL 25 MG CAPSULE PO SCH ×2 (05:44→10:22)
[2017-04-12] MEDS: CITALOPRAM HYDROBROMIDE 20 MG TABLET (FP) PO SCH (10:22)
[2017-04-12] MEDS: PRENATAL VITAMINS W/ FOLIC ACID TABLET (FP) PO SCH (10:22)
[2017-04-12] MEDS: BACITRACIN 0.9 GM PACKET TP SCH ×2 (10:22→22:11)
--- NOTE | 2017-04-12 10:57 | PN ---
S CIWA - CIWA Score Nausea/Vomitin-No Nausea/No Vomiting Muscle Tremors: 4-Moderate,w/Arms Extend Anxiety: 4-Mod. Anxious/Guarded Agitation: 4-Moderately Restless Paroxysmal Sweats: 1-Minimal Palms Moist Orientation: 0-Oriented Tacttile Disturbances: 3-Moderate Itch/Numb/Burn Auditory Disturbances: 0-None Visual Disturbances: 0-None Headache: 0-None Present CIWA-Ar Total Score: 16 BHS Progress Note (SOAP) Subjective: ANXIETY,SWEATS,SLIGHT TREMORS. Objective: 04/12/17 10:56 Vital Signs Temperature 97.7 F 04/12/17 10:09 Pulse Rate 63 04/12/17 10:09 Respiratory Rate 18 04/12/17 10:09 Blood Pressure 115/75 04/12/17 10:09 O2 Sat by Pulse Oximetry (%) Laboratory Last Values Urine Color Yellow 04/10/17 15:33 Urine Appearance Clear 04/10/17 15:33 Urine pH 5.0 (5.0-8.0) 04/10/17 15:33 Ur Specific [place] 1.021 (1.001-1.035) 04/10/17 15:33 Urine Protein Negative (NEGATIVE) 04/10/17 15:33 Urine Glucose (UA) Negative (NEGATIVE) 04/10/17 15:33 Urine Ketones Negative (NEGATIVE) 04/10/17 15:33 Urine Blood Negative (NEGATIVE) 04/10/17 15:33 Urine Nitrite Negative (NEGATIVE) 04/10/17 15:33 Urine Bilirubin Negative (NEGATIVE) 04/10/17 15:33 Urine Urobilinogen 2.0 mg/dL (0.2-1.0) 04/10/17 15:33 Ur Leukocyte Esterase Negative (NEGATIVE) 04/10/17 15:33 Assessment: 04/12/17 10:57 WITHDRAWAL SX Plan: CONTINUE DETOX INCREASE PO FLUIDS.
[2017-04-12] MEDS: chlordiazePOXIDE 5 MG CAPSULE PO SCH ×2 (17:04→22:11)
[2017-04-12] MEDS: QUEtiapine FUMARATE 100 MG TABLET (FP) PO SCH (22:11)
[2017-04-12] MEDS: THIAMINE HCL 100 MG TABLET (FP) PO SCH (22:11)
[2017-04-13] MEDS: chlordiazePOXIDE 5 MG CAPSULE PO SCH ×2 (06:07→10:11)
[2017-04-13] MEDS: BACITRACIN 0.9 GM PACKET TP SCH ×2 (10:11→22:14)
[2017-04-13] MEDS: PRENATAL VITAMINS W/ FOLIC ACID TABLET (FP) PO SCH (10:11)
[2017-04-13] MEDS: CITALOPRAM HYDROBROMIDE 20 MG TABLET (FP) PO SCH (10:11)
[2017-04-13 10:18] LABS: HEMATOCRIT 45.9 % (35.4-49); HEMOGLOBIN 14.8 GM/dL (11.7-16.9); MCH 27.7 pg (25.7-33.7); MCHC 32.2 g/dl (32.0-35.9); MEAN PLT VOLUME 8.7 fl (7.5-11.1); PLATELET COUNT 236 K/MM3 (134-434); RBC 5.34 M/mm3 (4.00-5.60); RDW 16.1 % (11.9-15.9)
[2017-04-13 10:41] LABS: CHLORIDE 102 mmol/L (98-107); POTASSIUM 3.8 mmol/L (3.5-5.1); SODIUM 140 mmol/L (136-145)
[2017-04-13 10:54] LABS: ALBUMIN 3.3 g/dl (3.4-5.0); ALK PHOS 94 U/L (45-117); ANION GAP 11 (8-16); BILIRUBIN,TOTAL 0.5 mg/dL (0.2-1.0); BLOOD UREA NITROGEN 13 mg/dL (7-18); CALCIUM 8.7 mg/dL (8.5-10.1); CO2 27 mmol/L (21-32); CREATININE 1.3 mg/dL (0.7-1.3); GLUCOSE,RANDOM 122 mg/dL (74-106); SGOT/AST 36 U/L (15-37); SGPT/ALT 62 U/L (12-78); TOT PROT 7.5 g/dl (6.4-8.2)
--- NOTE | 2017-04-13 11:23 | PN ---
BHS Progress Note (SOAP) Subjective: DECREASED ANXIETY,SWEATS. Objective: 04/13/17 11:23 Vital Signs 04/13/17 04/13/17 04/13/17 04:03 06:11 09:15 Temperature 97 F L 97.3 F L Pulse Rate 58 L 72 Respiratory 18 20 18 Rate Blood Pressure 108/68 122/83 Laboratory Last Values WBC 5.0 K/mm3 (4.0-10.0) 04/13/17 07:00 RBC 5.34 M/mm3 (4.00-5.60) 04/13/17 07:00 Hgb 14.8 GM/dL (11.7-16.9) 04/13/17 07:00 Hct 45.9 % (35.4-49) 04/13/17 07:00 MCV 86.0 fl (80-96) 04/13/17 07:00 MCH 27.7 pg (25.7-33.7) 04/13/17 07:00 MCHC 32.2 g/dl (32.0-35.9) 04/13/17 07:00 RDW 16.1 % (11.9-15.9) H 04/13/17 07:00 Plt Count 236 K/MM3 (134-434) 04/13/17 07:00 MPV 8.7 fl (7.5-11.1) 04/13/17 07:00 Sodium 140 mmol/L (136-145) 04/13/17 07:00 Potassium 3.8 mmol/L (3.5-5.1) 04/13/17 07:00 Chloride 102 mmol/L (98-107) 04/13/17 07:00 Carbon Dioxide 27 mmol/L (21-32) 04/13/17 07:00 Anion Gap 11 (8-16) 04/13/17 07:00 BUN 13 mg/dL (7-18) D 04/13/17 07:00 Creatinine 1.3 mg/dL (0.7-1.3) 04/13/17 07:00 Creat Clearance w eGFR 59.97 (>60) 04/13/17 07:00 Random Glucose 122 mg/dL (74-106) H D 04/13/17 07:00 Calcium 8.7 mg/dL (8.5-10.1) 04/13/17 07:00 Total Bilirubin 0.5 mg/dL (0.2-1.0) D 04/13/17 07:00 AST 36 U/L (15-37) 04/13/17 07:00 ALT 62 U/L (12-78) 04/13/17 07:00 Alkaline Phosphatase 94 U/L (45-117) 04/13/17 07:00 Total Protein 7.5 g/dl (6.4-8.2) 04/13/17 07:00 Albumin 3.3 g/dl (3.4-5.0) L 04/13/17 07:00 Urine Color Yellow 04/10/17 15:33 Urine Appearance Clear 04/10/17 15:33 Urine pH 5.0 (5.0-8.0) 04/10/17 15:33 Ur Specific [place] 1.021 (1.001-1.035) 04/10/17 15:33 Urine Protein Negative (NEGATIVE) 04/10/17 15:33 Urine Glucose (UA) Negative (NEGATIVE) 04/10/17 15:33 Urine Ketones Negative (NEGATIVE) 04/10/17 15:33 Urine Blood Negative (NEGATIVE) 04/10/17 15:33 Urine Nitrite Negative (NEGATIVE) 04/10/17 15:33 Urine Bilirubin Negative (NEGATIVE) 04/10/17 15:33 Urine Urobilinogen 2.0 mg/dL (0.2-1.0) 04/10/17 15:33 Ur Leukocyte Esterase Negative (NEGATIVE) 04/10/17 15:33 Assessment: 04/13/17 11:24 WITHDRAWAL SX Plan: CONTINUE DETOX
[2017-04-13] MEDS: chlordiazePOXIDE HCL 10 MG CAPSULE PO SCH ×2 (17:26→22:14)
[2017-04-13] MEDS: QUEtiapine FUMARATE 100 MG TABLET (FP) PO SCH (22:14)
[2017-04-13] MEDS: THIAMINE HCL 100 MG TABLET (FP) PO SCH (22:14)
[2017-04-14] MEDS: chlordiazePOXIDE HCL 10 MG CAPSULE PO SCH ×2 (05:13→10:17)
[2017-04-14 09:06] VITALS: BP 112/75; PULSE 75; TEMP 98.8
[2017-04-14] MEDS: BACITRACIN 0.9 GM PACKET TP SCH (10:17)
[2017-04-14] MEDS: CITALOPRAM HYDROBROMIDE 20 MG TABLET (FP) PO SCH (10:17)
[2017-04-14] MEDS: PRENATAL VITAMINS W/ FOLIC ACID TABLET (FP) PO SCH (10:17)
--- NOTE | 2017-04-14 10:50 | DS ---
[facility] Detox Discharge Summary Admission Date: 04/10/17 Discharge Date: 04/14/17 - History Present History: Alcohol Dependence Additional Comments: DETOX COMPLETED.REFERRED TO REHAB TODAY. Pertinent Past History: SEE DX BELOW - Physical Exam Results Vital Signs: Vital Signs Temperature 98.8 F 04/14/17 09:05 Pulse Rate 75 04/14/17 09:05 Respiratory Rate 18 04/14/17 09:05 Blood Pressure 112/75 04/14/17 09:05 O2 Sat by Pulse Oximetry (%) Pertinent Admission Physical Exam Findings: WITHDRAWAL SX Laboratory Last Values WBC 5.0 K/mm3 (4.0-10.0) 04/13/17 07:00 RBC 5.34 M/mm3 (4.00-5.60) 04/13/17 07:00 Hgb 14.8 GM/dL (11.7-16.9) 04/13/17 07:00 Hct 45.9 % (35.4-49) 04/13/17 07:00 MCV 86.0 fl (80-96) 04/13/17 07:00 MCH 27.7 pg (25.7-33.7) 04/13/17 07:00 MCHC 32.2 g/dl (32.0-35.9) 04/13/17 07:00 RDW 16.1 % (11.9-15.9) H 04/13/17 07:00 Plt Count 236 K/MM3 (134-434) 04/13/17 07:00 MPV 8.7 fl (7.5-11.1) 04/13/17 07:00 Sodium 140 mmol/L (136-145) 04/13/17 07:00 Potassium 3.8 mmol/L (3.5-5.1) 04/13/17 07:00 Chloride 102 mmol/L (98-107) 04/13/17 07:00 Carbon Dioxide 27 mmol/L (21-32) 04/13/17 07:00 Anion Gap 11 (8-16) 04/13/17 07:00 BUN 13 mg/dL (7-18) D 04/13/17 07:00 Creatinine 1.3 mg/dL (0.7-1.3) 04/13/17 07:00 Creat Clearance w eGFR 59.97 (>60) 04/13/17 07:00 Random Glucose 122 mg/dL (74-106) H D 04/13/17 07:00 Calcium 8.7 mg/dL (8.5-10.1) 04/13/17 07:00 Total Bilirubin 0.5 mg/dL (0.2-1.0) D 04/13/17 07:00 AST 36 U/L (15-37) 04/13/17 07:00 ALT 62 U/L (12-78) 04/13/17 07:00 Alkaline Phosphatase 94 U/L (45-117) 04/13/17 07:00 Total Protein 7.5 g/dl (6.4-8.2) 04/13/17 07:00 Albumin 3.3 g/dl (3.4-5.0) L 04/13/17 07:00 Urine Color Yellow 04/10/17 15:33 Urine Appearance Clear 04/10/17 15:33 Urine pH 5.0 (5.0-8.0) 04/10/17 15:33 Ur Specific [place] 1.021 (1.001-1.035) 04/10/17 15:33 Urine Protein Negative (NEGATIVE) 04/10/17 15:33 Urine Glucose (UA) Negative (NEGATIVE) 04/10/17 15:33 Urine Ketones Negative (NEGATIVE) 04/10/17 15:33 Urine Blood Negative (NEGATIVE) 04/10/17 15:33 Urine Nitrite Negative (NEGATIVE) 04/10/17 15:33 Urine Bilirubin Negative (NEGATIVE) 04/10/17 15:33 Urine Urobilinogen 2.0 mg/dL (0.2-1.0) 04/10/17 15:33 Ur Leukocyte Esterase Negative (NEGATIVE) 04/10/17 15:33 RPR Titer Nonreactive (NONREACTIVE) 04/13/17 07:00 HIV 1&2 Antibody Screen Negative 04/13/17 07:00 HIV P24 Antigen Negative 04/13/17 07:00 - Treatment Hospital Course: Detox Protocol Followed, Detoxed Safely, Responded well, Discharged Condition Good, Rehab Referral Accepted Patient has Accepted a Rehab Referral to: [address] - Medication Discharge Medications: Ambulatory Orders Citalopram Hydrobromide [Celexa -] 20 mg PO DAILY #30 tablet 05/12/16 Quetiapine Fumarate [Seroquel] 100 mg PO HS #30 tablet 05/12/16 Albuterol Sulfate Inhaler - [Ventolin Hfa Inhaler -] 1 - 2 inh PO QID PRN Citalopram Hydrobromide [Celexa -] 20 mg PO DAILY #30 tablet 11/02/16 Quetiapine Fumarate [Seroquel] 100 mg PO HS #30 tablet 11/02/16 - Diagnosis (1) Abrasion of left lower leg Current Visit: Yes Status: Acute Qualifiers: Encounter type: subsequent encounter Qualified Code(s): S80.812D - Abrasion , left lower leg, subsequent encounter (2) Alcohol dependence with uncomplicated withdrawal Current Visit: Yes Status: Acute (3) Asthma Current Visit: Yes Status: Chronic Qualifiers: Asthma severity: mild Asthma complication type: uncomplicated (4) Obesity Current Visit: Yes Status: Chronic Qualifiers: Obesity type: due to excess calories - AMA Did Patient Leave Against Medical Advice: No
== END 2017-04-14 12:48 | disposition other institution (70) | DRG 774 ==
LOC: YASAS 08:36 → Y3N 10:27
PROVIDERS: ADMIT Internal Medicine; ATTEND Internal Medicine
PROC: HZ2ZZZZ Detoxification Services for Substance Abuse Treatment (ICD-10-PCS; principal; 2017-04-10)
DX: F10.230 Alcohol dependence with withdrawal, uncomplicated (principal); F14.20 Cocaine dependence, uncomplicated; F33.9 Major depressive disorder, recurrent, unspecified; F10.282 Alcohol dependence with alcohol-induced sleep disorder; F19.24 Other psychoactive substance dependence with psychoactive substance-induced mood disorder; E66.09 Other obesity due to excess calories; J45.909 Unspecified asthma, uncomplicated; S80.812D Abrasion, left lower leg, subsequent encounter; X58.XXXD Exposure to other specified factors, subsequent encounter; Z87.828 Personal history of other (healed) physical injury and trauma; Z87.891 Personal history of nicotine dependence; Z91.5 Personal history of self-harm; Z68.41 Body mass index [BMI] 40.0-44.9, adult
CPT/HCPCS: 36415; 80053; 81003; 85027; 86593; 87389; 93005; 93010

== ENCOUNTER 2017-04-14 13:15 | Inpatient (IN) | payer OTHER ==
[2017-04-14 13:31] VITALS: BMI 42.5
[2017-04-14] MEDS ORDERED: ACETAMINOPHEN 325 MG TABLET (FP) PO PRN (16:54)
[2017-04-14] MEDS ORDERED: NICOTINE 14 MG/24 HOURS TOPICAL PATCH TD PRN (16:54)
[2017-04-14] MEDS ORDERED: MAGNESIUM CITRATE 300 ML BOTTLE PO PRN (16:54)
[2017-04-14] MEDS ORDERED: IBUPROFEN 400 MG TABLET (FP) PO PRN (16:54)
[2017-04-14] MEDS ORDERED: MAG HYDROX/AL HYDROX/SIMETH 30 ML UNIT-DOSE CUP PO PRN (16:54)
[2017-04-14] MEDS ORDERED: MENTHOL/PHENOL 1 EACH UD MM PRN (16:54)
[2017-04-14] MEDS ORDERED: MAGNESIUM HYDROX 2400MG/30ML ORAL SUSPENSION 30 ML CUP PO PRN (16:54)
[2017-04-14] MEDS ORDERED: NICOTINE POLACRILEX 2 MG GUM BUC PRN (16:54)
[2017-04-14] MEDS ORDERED: guaiFENesin/D-METHORPHAN HB 10 ML UNIT-DOSE CUPS PO PRN (16:54)
[2017-04-14] MEDS ORDERED: P-EPHED 60MG/TRIPROLIDI 2.5MG TABLET PO PRN (16:54)
[2017-04-14] MEDS ORDERED: LOPERAMIDE HCL 2 MG CAPSULE PO PRN (16:54)
--- NOTE | 2017-04-14 16:54 | HP ---
[facility] Rehab Assess/Revision - Admission History Admitted to Rehab from: [facility] Date of Admission to Rehab: 04/14/17 - Vital signs Vital Signs: Vital Signs Period Temp Pulse Resp BP Sys/Arredondo Pulse Ox Last 24 Hr 97.5 F 71 20 125/68 - Findings Detox History & Physical reviewed: Yes Concur with findings: Yes Comments/Additional Findings: transferred from detox to rehab admission as per protocol
--- NOTE | 2017-04-14 16:54 | HP ---
[facility] Rehab Assess/Revision - Vital signs Vital Signs: Vital Signs Period Temp Pulse Resp BP Sys/Arredondo Pulse Ox Last 24 Hr 97.5 F 71 20 125/68 Inpatient Rehab Admission - Initial Determination Are CD services needed?: Yes Free of communicable disease: Yes Not in need of hospitalization: Yes - Rehab Admission Criteria Previous failed treatment: Yes Poor recovery environment: Yes Comorbidities: Yes Lacks judgement: No Patient is meeting Inpatient Rehab admission criteria:: Yes
[2017-04-14] MEDS ORDERED: ALBUTEROL SO4 18 GM HFA INHALER IH PRN (16:56)
[2017-04-14] MEDS: THIAMINE HCL 100 MG TABLET (FP) PO SCH (21:24)
[2017-04-14] MEDS: QUEtiapine FUMARATE 100 MG TABLET (FP) PO SCH (21:24)
[2017-04-15] MEDS ORDERED: hydrOXYzine PAMOATE 50 MG CAPSULE (FP) PO ONE (02:10)
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
[2017-04-15] MEDS: CITALOPRAM HYDROBROMIDE 20 MG TABLET (FP) PO SCH (10:38)
[2017-04-15] MEDS: PRENATAL VITAMINS W/ FOLIC ACID TABLET (FP) PO SCH (10:38)
[2017-04-15] MEDS ORDERED: FLU VACCINE QUAD 60 MCG/0.5 ML (MDV 17-18) IM ONE (12:00)
[2017-04-15] MEDS: QUEtiapine FUMARATE 100 MG TABLET (FP) PO SCH (21:40)
[2017-04-15] MEDS: THIAMINE HCL 100 MG TABLET (FP) PO SCH (21:40)
[2017-04-16] MEDS: PRENATAL VITAMINS W/ FOLIC ACID TABLET (FP) PO SCH (10:28)
[2017-04-16] MEDS: CITALOPRAM HYDROBROMIDE 20 MG TABLET (FP) PO SCH (10:28)
[2017-04-16] MEDS: THIAMINE HCL 100 MG TABLET (FP) PO SCH (21:17)
[2017-04-16] MEDS: QUEtiapine FUMARATE 100 MG TABLET (FP) PO SCH (21:17)
[2017-04-17] MEDS: PRENATAL VITAMINS W/ FOLIC ACID TABLET (FP) PO SCH (10:16)
[2017-04-17] MEDS: CITALOPRAM HYDROBROMIDE 20 MG TABLET (FP) PO SCH (10:16)
[2017-04-17] MEDS: QUEtiapine FUMARATE 100 MG TABLET (FP) PO SCH (21:26)
[2017-04-17] MEDS: THIAMINE HCL 100 MG TABLET (FP) PO SCH (21:26)
[2017-04-18] MEDS: PRENATAL VITAMINS W/ FOLIC ACID TABLET (FP) PO SCH (10:04)
[2017-04-18] MEDS: CITALOPRAM HYDROBROMIDE 20 MG TABLET (FP) PO SCH (10:04)
[2017-04-18] MEDS: THIAMINE HCL 100 MG TABLET (FP) PO SCH (21:50)
[2017-04-18] MEDS: QUEtiapine FUMARATE 100 MG TABLET (FP) PO SCH (21:50)
[2017-04-19] MEDS: PRENATAL VITAMINS W/ FOLIC ACID TABLET (FP) PO SCH (10:19)
[2017-04-19] MEDS: CITALOPRAM HYDROBROMIDE 20 MG TABLET (FP) PO SCH (10:19)
[2017-04-19] MEDS: QUEtiapine FUMARATE 100 MG TABLET (FP) PO SCH (21:22)
[2017-04-19] MEDS: THIAMINE HCL 100 MG TABLET (FP) PO SCH (21:22)
[2017-04-20] MEDS: CITALOPRAM HYDROBROMIDE 20 MG TABLET (FP) PO SCH (10:10)
[2017-04-20] MEDS: PRENATAL VITAMINS W/ FOLIC ACID TABLET (FP) PO SCH (10:10)
[2017-04-20] MEDS: THIAMINE HCL 100 MG TABLET (FP) PO SCH (21:31)
[2017-04-20] MEDS: QUEtiapine FUMARATE 100 MG TABLET (FP) PO SCH (21:31)
[2017-04-21] MEDS: PRENATAL VITAMINS W/ FOLIC ACID TABLET (FP) PO SCH (10:13)
[2017-04-21] MEDS: CITALOPRAM HYDROBROMIDE 20 MG TABLET (FP) PO SCH (10:13)
[2017-04-21] MEDS: THIAMINE HCL 100 MG TABLET (FP) PO SCH (21:31)
[2017-04-21] MEDS: QUEtiapine FUMARATE 100 MG TABLET (FP) PO SCH (21:31)
[2017-04-22] MEDS: CITALOPRAM HYDROBROMIDE 20 MG TABLET (FP) PO SCH (10:26)
[2017-04-22] MEDS: PRENATAL VITAMINS W/ FOLIC ACID TABLET (FP) PO SCH (10:26)
[2017-04-22] MEDS: QUEtiapine FUMARATE 100 MG TABLET (FP) PO SCH (21:26)
[2017-04-22] MEDS: THIAMINE HCL 100 MG TABLET (FP) PO SCH (21:26)
[2017-04-23] MEDS: CITALOPRAM HYDROBROMIDE 20 MG TABLET (FP) PO SCH (10:06)
[2017-04-23] MEDS: PRENATAL VITAMINS W/ FOLIC ACID TABLET (FP) PO SCH (10:06)
[2017-04-23] MEDS: THIAMINE HCL 100 MG TABLET (FP) PO SCH (21:22)
[2017-04-23] MEDS: QUEtiapine FUMARATE 100 MG TABLET (FP) PO SCH (21:22)
[2017-04-24] MEDS: PRENATAL VITAMINS W/ FOLIC ACID TABLET (FP) PO SCH (09:59)
[2017-04-24] MEDS: CITALOPRAM HYDROBROMIDE 20 MG TABLET (FP) PO SCH (09:59)
[2017-04-24] MEDS: THIAMINE HCL 100 MG TABLET (FP) PO SCH (21:31)
[2017-04-24] MEDS: QUEtiapine FUMARATE 100 MG TABLET (FP) PO SCH (21:31)
[2017-04-25] MEDS: CITALOPRAM HYDROBROMIDE 20 MG TABLET (FP) PO SCH (10:26)
[2017-04-25] MEDS: PRENATAL VITAMINS W/ FOLIC ACID TABLET (FP) PO SCH (10:26)
[2017-04-25] MEDS: THIAMINE HCL 100 MG TABLET (FP) PO SCH (21:30)
[2017-04-25] MEDS: QUEtiapine FUMARATE 100 MG TABLET (FP) PO SCH (21:31)
[2017-04-26 06:58] VITALS: TEMP 98.4
[2017-04-26] MEDS: CITALOPRAM HYDROBROMIDE 20 MG TABLET (FP) PO SCH (10:21)
[2017-04-26] MEDS: PRENATAL VITAMINS W/ FOLIC ACID TABLET (FP) PO SCH (10:21)
[2017-04-26] MEDS: THIAMINE HCL 100 MG TABLET (FP) PO SCH (22:02)
[2017-04-26] MEDS: QUEtiapine FUMARATE 100 MG TABLET (FP) PO SCH (22:02)
[2017-04-27 06:58] VITALS: BP 119/70; PULSE 57
[2017-04-27] MEDS: PRENATAL VITAMINS W/ FOLIC ACID TABLET (FP) PO SCH (10:28)
[2017-04-27] MEDS: CITALOPRAM HYDROBROMIDE 20 MG TABLET (FP) PO SCH (10:28)
[2017-04-27] MEDS: QUEtiapine FUMARATE 100 MG TABLET (FP) PO SCH (21:09)
[2017-04-27] MEDS: THIAMINE HCL 100 MG TABLET (FP) PO SCH (21:09)
== END 2017-04-28 06:00 | disposition left against medical advice (07) | DRG 770 ==
LOC: YASAS 13:15 → Y3W 13:16
PROVIDERS: ADMIT Psychiatry & Neurology Psychiatry; ATTEND Psychiatry & Neurology Psychiatry
PROC: HZ42ZZZ Group Counseling for Substance Abuse Treatment, Cognitive-Behavioral (ICD-10-PCS; principal; 2017-04-14)
DX: F10.20 Alcohol dependence, uncomplicated (principal); F14.20 Cocaine dependence, uncomplicated; F33.9 Major depressive disorder, recurrent, unspecified; F19.282 Other psychoactive substance dependence with psychoactive substance-induced sleep disorder; J45.909 Unspecified asthma, uncomplicated; Z87.828 Personal history of other (healed) physical injury and trauma; Z59.0 Homelessness
CPT/HCPCS: 90688

== ENCOUNTER 2017-07-03 12:56 | Inpatient (IN) | payer OTHER ==
[2017-07-03 14:32] VITALS: BMI 32.5
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
[2017-07-03] MEDS ORDERED: P-EPHED 60MG/TRIPROLIDI 2.5MG TABLET PO PRN (18:33)
[2017-07-03] MEDS ORDERED: guaiFENesin/D-METHORPHAN HB 10 ML UNIT-DOSE CUPS PO PRN (18:33)
[2017-07-03] MEDS ORDERED: MAGNESIUM HYDROX 2400MG/30ML ORAL SUSPENSION 30 ML CUP PO PRN (18:33)
[2017-07-03] MEDS ORDERED: MAG HYDROX/AL HYDROX/SIMETH 30 ML UNIT-DOSE CUP PO PRN (18:33)
[2017-07-03] MEDS ORDERED: ACETAMINOPHEN 325 MG TABLET (FP) PO PRN (18:33)
[2017-07-03] MEDS ORDERED: MAGNESIUM CITRATE 300 ML BOTTLE PO PRN (18:33)
[2017-07-03] MEDS ORDERED: LOPERAMIDE HCL 2 MG CAPSULE PO PRN (18:33)
[2017-07-03] MEDS ORDERED: MENTHOL/PHENOL 1 EACH UD MM PRN (18:33)
[2017-07-03] MEDS ORDERED: chlordiazePOXIDE HCL 25 MG CAPSULE PO PRN (18:33)
[2017-07-03] MEDS ORDERED: ALBUTEROL SO4 18 GM HFA INHALER IH PRN (18:35)
[2017-07-03] MEDS ORDERED: MELATONIN 5 MG TABLETS PO PRN (22:00)
[2017-07-03] MEDS: chlordiazePOXIDE HCL 25 MG CAPSULE PO SCH (22:04)
[2017-07-03] MEDS: THIAMINE HCL 100 MG TABLET (FP) PO SCH (22:04)
[2017-07-04 01:21] LABS: URINE APPEARANCE TURBID; URINE BILIRUBIN NEGATIVE (<2.0 mg/dL); URINE BLOOD NEGATIVE (NEGATIVE); URINE COLOR RED; URINE GLUCOSE (UA) NEGATIVE (NEGATIVE); URINE KETONE TRACE (NEGATIVE); URINE LEUK ESTERASE NEGATIVE (NEGATIVE); URINE NITRITE NEGATIVE (NEGATIVE); URINE UROBILINOGEN NEGATIVE mg/dL (0.2-1.0)
[2017-07-04 01:23] LABS: URINE PROTEIN 1+ (NEGATIVE)
[2017-07-04 01:27] LABS: EPI CELLS RARE /HPF (FEW); URINE MUCUS MANY
[2017-07-04] MEDS: chlordiazePOXIDE HCL 25 MG CAPSULE PO SCH ×4 (05:03→22:16)
[2017-07-04] MEDS: PRENATAL VITAMINS W/ FOLIC ACID TABLET (FP) PO SCH (10:09)
--- NOTE | 2017-07-04 11:22 | PN ---
S CIWA - CIWA Score Nausea/Vomitin Muscle Tremors: 3 Anxiety: 3 Agitation: 3 Paroxysmal Sweats: 3 Orientation: 0-Oriented Tacttile Disturbances: 0-None Auditory Disturbances: 0-None Visual Disturbances: 0-None Headache: 0-None Present CIWA-Ar Total Score: 14 BHS Progress Note (SOAP) Subjective: sweats shakes sleep disturbance Objective: 07/04/17 11:20 A & O x 3 Tremulous Vital Signs Temperature 96.1 F L 07/04/17 09:04 Pulse Rate 64 07/04/17 09:04 Respiratory Rate 20 07/04/17 09:04 Blood Pressure 107/66 07/04/17 09:04 O2 Sat by Pulse Oximetry (%) Laboratory Last Values Urine Color Red 07/03/17 23:30 Urine Appearance Turbid 07/03/17 23:30 Urine pH 5.0 (5.0-8.0) 07/03/17 23:30 Ur Specific [place] 1.027 (1.001-1.035) 07/03/17 23:30 Urine Protein 1+ (NEGATIVE) H 07/03/17 23:30 Urine Glucose (UA) Negative (NEGATIVE) 07/03/17 23:30 Urine Ketones Trace (NEGATIVE) H 07/03/17 23:30 Urine Blood Negative (NEGATIVE) 07/03/17 23:30 Urine Nitrite Negative (NEGATIVE) 07/03/17 23:30 Urine Bilirubin Negative (<2.0 mg/dL) 07/03/17 23:30 Urine Urobilinogen Negative mg/dL (0.2-1.0) 07/03/17 23:30 Ur Leukocyte Esterase Negative (NEGATIVE) 07/03/17 23:30 Urine WBC (Auto) 6 /hpf (3-5) 07/03/17 23:30 Urine RBC (Auto) 7 /hpf (0-3) 07/03/17 23:30 Ur Epithelial Cells Rare /HPF (FEW) 07/03/17 23:30 Urine Mucus Many 07/03/17 23:30 LAbs pending Assessment: 07/04/17 11:21 Withdrawal sx Plan: continue detox
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
[2017-07-04 12:34] LABS: ALBUMIN 3.3 g/dl (3.4-5.0); ANION GAP 6 (8-16); BLOOD UREA NITROGEN 16 mg/dL (7-18); CALCIUM 8.4 mg/dL (8.5-10.1); CHLORIDE 106 mmol/L (98-107); CO2 28 mmol/L (21-32); CREATININE 1.2 mg/dL (0.7-1.3); GLUCOSE,RANDOM 89 mg/dL (74-106); POTASSIUM 3.7 mmol/L (3.5-5.1); SGOT/AST 32 U/L (15-37); SGPT/ALT 40 U/L (12-78); SODIUM 140 mmol/L (136-145)
[2017-07-04 12:36] LABS: ALK PHOS 106 U/L (45-117); BILIRUBIN,TOTAL 0.6 mg/dL (0.2-1.0); TOT PROT 7.3 g/dl (6.4-8.2)
[2017-07-04 14:26] LABS: HEMATOCRIT 41.6 % (35.4-49); HEMOGLOBIN 13.9 GM/dL (11.7-16.9); MCH 27.8 pg (25.7-33.7); MCHC 33.3 g/dl (32.0-35.9); MEAN CELL VOLUME 83.5 fl (80-96); MEAN PLT VOLUME 8.6 fl (7.5-11.1); PLATELET COUNT 223 K/MM3 (134-434); RBC 4.98 M/mm3 (4.00-5.60); RDW 16.5 % (11.9-15.9); WHITE BLOOD COUNT 5.1 K/mm3 (4.0-10.0)
[2017-07-04] MEDS: THIAMINE HCL 100 MG TABLET (FP) PO SCH (22:16)
[2017-07-04] MEDS: QUEtiapine FUMARATE 100 MG TABLET (FP) PO SCH (22:16)
--- NOTE | 2017-07-04 23:56 | EKG ---
Test Reason : Blood Pressure : / mmHG Vent. Rate : 056 BPM Atrial Rate : 056 BPM P-R Int : 182 ms QRS Dur : 088 ms QT Int : 414 ms P-R-T Axes : -01 025 015 degrees QTc Int : 399 ms SINUS BRADYCARDIA NONSPECIFIC T WAVE ABNORMALITY ABNORMAL ECG WHEN COMPARED WITH ECG OF 10-APR-2017 13:29, NO SIGNIFICANT CHANGE WAS FOUND Confirmed by MARZENA VALLE MD ([id number]) on 07/04/2017 11:56:17 PM Referred By: Confirmed By:MARZENA VALLE MD
[2017-07-05] MEDS: chlordiazePOXIDE HCL 25 MG CAPSULE PO SCH ×3 (05:03→17:36)
[2017-07-05] MEDS: PRENATAL VITAMINS W/ FOLIC ACID TABLET (FP) PO SCH (10:07)
--- NOTE | 2017-07-05 11:34 | PN ---
[facility] CIWA - CIWA Score Nausea/Vomitin-No Nausea/No Vomiting Muscle Tremors: None Anxiety: 4-Mod. Anxious/Guarded Agitation: 3 Paroxysmal Sweats: 3 Orientation: 0-Oriented Tacttile Disturbances: 2-Mild Itch/Numbness/Burn Auditory Disturbances: 2-Mild Harshness/Frighten Visual Disturbances: 2-Mild Sensitivity Headache: 0-None Present CIWA-Ar Total Score: 16 BHS Progress Note (SOAP) Subjective: Fatigue, Interrupted Sleep, Sweating. Objective: PATIENT A & O X 3, OBSERVED AMBULATING ON UNIT. NO ACUTE DISTRESS. 07/05/17 11:32 Vital Signs Temperature 96.4 F L 07/05/17 09:15 Pulse Rate 67 07/05/17 09:15 Respiratory Rate 18 07/05/17 09:15 Blood Pressure 112/75 07/05/17 09:15 O2 Sat by Pulse Oximetry (%) Laboratory Tests 07/03/17 07/04/17 07/04/17 23:30 07:00 07:00 WBC 5.1 RBC 4.98 Hgb 13.9 Hct 41.6 MCV 83.5 MCH 27.8 MCHC 33.3 RDW 16.5 H Plt Count 223 MPV 8.6 Sodium 140 Potassium 3.7 Chloride 106 Carbon Dioxide 28 Anion Gap 6 L BUN 16 D Creatinine 1.2 Creat Clearance w eGFR > 60 Random Glucose 89 D Calcium 8.4 L Total Bilirubin 0.6 AST 32 ALT 40 D Alkaline Phosphatase 106 Total Protein 7.3 Albumin 3.3 L Urine Color Red Urine Appearance Turbid Urine pH 5.0 Ur Specific [place] 1.027 Urine Protein 1+ H Urine Glucose (UA) Negative Urine Ketones Trace H Urine Blood Negative Urine Nitrite Negative Urine Bilirubin Negative Urine Urobilinogen Negative Ur Leukocyte Esterase Negative Urine WBC (Auto) 6 Urine RBC (Auto) 7 Ur Epithelial Cells Rare Urine Mucus Many LABS NOTED. HIV AB, RPR RESULTS PENDING. 07/05/17 11:34 Assessment: 07/05/17 11:32 WITHDRAWAL SYMPTOMS. Plan: CONTINUE DETOX. INCREASE DAILY PO FLUID INTAKE.
[2017-07-05] MEDS: IBUPROFEN 400 MG TABLET (FP) PO PRN (20:47)
[2017-07-05] MEDS: THIAMINE HCL 100 MG TABLET (FP) PO SCH (22:13)
[2017-07-05] MEDS: QUEtiapine FUMARATE 100 MG TABLET (FP) PO SCH (22:13)
[2017-07-05] MEDS: chlordiazePOXIDE 5 MG CAPSULE PO SCH (22:13)
[2017-07-06] MEDS: chlordiazePOXIDE 5 MG CAPSULE PO SCH ×3 (05:08→17:34)
[2017-07-06] MEDS: PRENATAL VITAMINS W/ FOLIC ACID TABLET (FP) PO SCH (10:11)
--- NOTE | 2017-07-06 13:27 | PN ---
BHS Progress Note (SOAP) Subjective: Sweating, Fatigue. Objective: PATIENT A & O X 3. NO ACUTE DISTRESS. 07/06/17 13:24 Vital Signs Temperature 95 F L 07/06/17 09:34 Pulse Rate 67 07/06/17 09:34 Respiratory Rate 18 07/06/17 09:34 Blood Pressure 113/63 07/06/17 09:34 O2 Sat by Pulse Oximetry (%) Laboratory Tests 07/03/17 07/04/17 07/04/17 23:30 07:00 07:00 WBC 5.1 RBC 4.98 Hgb 13.9 Hct 41.6 MCV 83.5 MCH 27.8 MCHC 33.3 RDW 16.5 H Plt Count 223 MPV 8.6 Sodium 140 Potassium 3.7 Chloride 106 Carbon Dioxide 28 Anion Gap 6 L BUN 16 D Creatinine 1.2 Creat Clearance w eGFR > 60 Random Glucose 89 D Calcium 8.4 L Total Bilirubin 0.6 AST 32 ALT 40 D Alkaline Phosphatase 106 Total Protein 7.3 Albumin 3.3 L Urine Color Red Urine Appearance Turbid Urine pH 5.0 Ur Specific [place] 1.027 Urine Protein 1+ H Urine Glucose (UA) Negative Urine Ketones Trace H Urine Blood Negative Urine Nitrite Negative Urine Bilirubin Negative Urine Urobilinogen Negative Ur Leukocyte Esterase Negative Urine WBC (Auto) 6 Urine RBC (Auto) 7 Ur Epithelial Cells Rare Urine Mucus Many RPR Titer HIV 1&2 Antibody Screen HIV P24 Antigen 07/04/17 07/04/17 07:00 08:00 WBC RBC Hgb Hct MCV MCH MCHC RDW Plt Count MPV Sodium Potassium Chloride Carbon Dioxide Anion Gap BUN Creatinine Creat Clearance w eGFR Random Glucose Calcium Total Bilirubin AST ALT Alkaline Phosphatase Total Protein Albumin Urine Color Urine Appearance Urine pH Ur Specific [place] Urine Protein Urine Glucose (UA) Urine Ketones Urine Blood Urine Nitrite Urine Bilirubin Urine Urobilinogen Ur Leukocyte Esterase Urine WBC (Auto) Urine RBC (Auto) Ur Epithelial Cells Urine Mucus RPR Titer Nonreactive HIV 1&2 Antibody Screen Negative HIV P24 Antigen Negative LABS NOTED. Assessment: 07/06/17 13:25 WITHDRAWAL SYMPTOMS. Plan: CONTINUE DETOX.
[2017-07-06] MEDS: IBUPROFEN 400 MG TABLET (FP) PO PRN (16:21)
[2017-07-06] MEDS: THIAMINE HCL 100 MG TABLET (FP) PO SCH (22:12)
[2017-07-06] MEDS: chlordiazePOXIDE HCL 10 MG CAPSULE PO SCH (22:12)
[2017-07-06] MEDS: QUEtiapine FUMARATE 100 MG TABLET (FP) PO SCH (22:12)
[2017-07-07] MEDS: chlordiazePOXIDE HCL 10 MG CAPSULE PO SCH ×2 (05:05→10:06)
[2017-07-07 09:13] VITALS: BP 107/74; PULSE 71; TEMP 96.4
[2017-07-07] MEDS: PRENATAL VITAMINS W/ FOLIC ACID TABLET (FP) PO SCH (10:06)
--- NOTE | 2017-07-07 13:11 | PN ---
BHS Progress Note (SOAP) Subjective: Patient denies current Detox symptoms and reports that he feels well overall. Objective: PATIENT A & O X 3, OBSERVED AMBULATING ON UNIT. NO ACUTE DISTRESS. 07/07/17 13:09 Vital Signs Temperature 96.4 F L 07/07/17 09:13 Pulse Rate 71 07/07/17 09:13 Respiratory Rate 18 07/07/17 09:13 Blood Pressure 107/74 07/07/17 09:13 O2 Sat by Pulse Oximetry (%) Laboratory Tests 07/03/17 07/04/17 07/04/17 23:30 07:00 07:00 WBC 5.1 RBC 4.98 Hgb 13.9 Hct 41.6 MCV 83.5 MCH 27.8 MCHC 33.3 RDW 16.5 H Plt Count 223 MPV 8.6 Sodium 140 Potassium 3.7 Chloride 106 Carbon Dioxide 28 Anion Gap 6 L BUN 16 D Creatinine 1.2 Creat Clearance w eGFR > 60 Random Glucose 89 D Calcium 8.4 L Total Bilirubin 0.6 AST 32 ALT 40 D Alkaline Phosphatase 106 Total Protein 7.3 Albumin 3.3 L Urine Color Red Urine Appearance Turbid Urine pH 5.0 Ur Specific [place] 1.027 Urine Protein 1+ H Urine Glucose (UA) Negative Urine Ketones Trace H Urine Blood Negative Urine Nitrite Negative Urine Bilirubin Negative Urine Urobilinogen Negative Ur Leukocyte Esterase Negative Urine WBC (Auto) 6 Urine RBC (Auto) 7 Ur Epithelial Cells Rare Urine Mucus Many RPR Titer HIV 1&2 Antibody Screen HIV P24 Antigen 07/04/17 07/04/17 07:00 08:00 WBC RBC Hgb Hct MCV MCH MCHC RDW Plt Count MPV Sodium Potassium Chloride Carbon Dioxide Anion Gap BUN Creatinine Creat Clearance w eGFR Random Glucose Calcium Total Bilirubin AST ALT Alkaline Phosphatase Total Protein Albumin Urine Color Urine Appearance Urine pH Ur Specific [place] Urine Protein Urine Glucose (UA) Urine Ketones Urine Blood Urine Nitrite Urine Bilirubin Urine Urobilinogen Ur Leukocyte Esterase Urine WBC (Auto) Urine RBC (Auto) Ur Epithelial Cells Urine Mucus RPR Titer Nonreactive HIV 1&2 Antibody Screen Negative HIV P24 Antigen Negative LABS NOTED. Assessment: 07/07/17 13:09 COMPLETION OF DETOX REGIMEN. Plan: PATIENT SCHEDULED FOR DISCHARGE FROM DETOX UNIT TO DAY. PATIENT SCHEDULED TO GO TO [facility] ([address] FOR AFTERCARE.
--- NOTE | 2017-07-07 13:12 | DS ---
[facility] Detox Discharge Summary Admission Date: 07/03/17 Discharge Date: 07/07/17 - History Present History: Alcohol Dependence, Cocaine Dependence Additional Comments: PATIENT GOING TO [facility] ([facility]) FOR AFTERCARE. PATIENT WAS DISCHARGED FROM DETOX UNIT IN STABLE MEDICAL CONDITION. Pertinent Past History: Asthma, Insomnia, Depression, Anxiety. - Physical Exam Results Vital Signs: Vital Signs Temperature 96.4 F L 07/07/17 09:13 Pulse Rate 71 07/07/17 09:13 Respiratory Rate 18 07/07/17 09:13 Blood Pressure 107/74 07/07/17 09:13 O2 Sat by Pulse Oximetry (%) Pertinent Admission Physical Exam Findings: WITHDRAWAL SYMPTOMS. Laboratory Tests 07/03/17 07/04/17 07/04/17 23:30 07:00 07:00 WBC 5.1 RBC 4.98 Hgb 13.9 Hct 41.6 MCV 83.5 MCH 27.8 MCHC 33.3 RDW 16.5 H Plt Count 223 MPV 8.6 Sodium 140 Potassium 3.7 Chloride 106 Carbon Dioxide 28 Anion Gap 6 L BUN 16 D Creatinine 1.2 Creat Clearance w eGFR > 60 Random Glucose 89 D Calcium 8.4 L Total Bilirubin 0.6 AST 32 ALT 40 D Alkaline Phosphatase 106 Total Protein 7.3 Albumin 3.3 L Urine Color Red Urine Appearance Turbid Urine pH 5.0 Ur Specific [place] 1.027 Urine Protein 1+ H Urine Glucose (UA) Negative Urine Ketones Trace H Urine Blood Negative Urine Nitrite Negative Urine Bilirubin Negative Urine Urobilinogen Negative Ur Leukocyte Esterase Negative Urine WBC (Auto) 6 Urine RBC (Auto) 7 Ur Epithelial Cells Rare Urine Mucus Many RPR Titer HIV 1&2 Antibody Screen HIV P24 Antigen 07/04/17 07/04/17 07:00 08:00 WBC RBC Hgb Hct MCV MCH MCHC RDW Plt Count MPV Sodium Potassium Chloride Carbon Dioxide Anion Gap BUN Creatinine Creat Clearance w eGFR Random Glucose Calcium Total Bilirubin AST ALT Alkaline Phosphatase Total Protein Albumin Urine Color Urine Appearance Urine pH Ur Specific [place]yer Urine Protein Urine Glucose (UA) Urine Ketones Urine Blood Urine Nitrite Urine Bilirubin Urine Urobilinogen Ur Leukocyte Esterase Urine WBC (Auto) Urine RBC (Auto) Ur Epithelial Cells Urine Mucus RPR Titer Nonreactive HIV 1&2 Antibody Screen Negative HIV P24 Antigen Negative LABS NOTED. - Treatment Hospital Course: Detox Protocol Followed, Detoxed Safely, Responded well, Discharged Condition Good, Rehab Referral Accepted Patient has Accepted a Rehab Referral to: [facility] ([facility] . - Medication Discharge Medications: Ambulatory Orders Citalopram Hydrobromide [Celexa -] 20 mg PO DAILY #30 tablet 05/12/16 Quetiapine Fumarate [Seroquel] 100 mg PO HS #30 tablet 05/12/16 Albuterol Sulfate Inhaler - [Ventolin Hfa Inhaler -] 1 - 2 inh PO QID PRN Citalopram Hydrobromide [Celexa -] 20 mg PO DAILY #30 tablet 11/02/16 Quetiapine Fumarate [Seroquel] 100 mg PO HS #30 tablet 11/02/16 Quetiapine Fumarate [Seroquel] 100 mg PO HS #30 tablet 07/06/17 - Diagnosis (1) Cocaine dependence Current Visit: Yes Status: Acute Qualifiers: Substance use status: uncomplicated Qualified Code(s): F14.20 - Cocaine dependence, uncomplicated (2) Alcohol dependence with uncomplicated withdrawal Current Visit: Yes Status: Chronic (3) Anxiety and depression Current Visit: Yes Status: Chronic (4) Obesity Current Visit: Yes Status: Chronic Qualifiers: Obesity type: due to excess calories (5) Asthma Current Visit: Yes Status: Chronic Qualifiers: Asthma severity: mild Asthma persistence: intermittent Asthma complication type: uncomplicated Qualified Code(s): J45.20 - Mild intermittent asthma, uncomplicated (6) Insomnia Current Visit: Yes Status: Acute Qualifiers: Insomnia type: unspecified Qualified Code(s): G47.00 - Insomnia, unspecified (7) Substance induced mood disorder Current Visit: Yes Status: Acute - AMA Did Patient Leave Against Medical Advice: No
== END 2017-07-07 13:34 | disposition other institution (70) | DRG 774 ==
LOC: YASAS 12:56 → Y3N 17:23
PROVIDERS: ADMIT Internal Medicine; ATTEND Internal Medicine
PROC: HZ2ZZZZ Detoxification Services for Substance Abuse Treatment (ICD-10-PCS; principal; 2017-07-03)
DX: F10.230 Alcohol dependence with withdrawal, uncomplicated (principal); F14.20 Cocaine dependence, uncomplicated; F41.8 Other specified anxiety disorders; F19.24 Other psychoactive substance dependence with psychoactive substance-induced mood disorder; J45.20 Mild intermittent asthma, uncomplicated; G47.00 Insomnia, unspecified; E66.9 Obesity, unspecified; Z68.32 Body mass index [BMI] 32.0-32.9, adult; Z91.5 Personal history of self-harm; Z87.828 Personal history of other (healed) physical injury and trauma
CPT/HCPCS: 36415; 80053; 81003; 81015; 85027; 86593; 87389; 93005; 93010

== ENCOUNTER 2018-11-17 08:07 | Inpatient (IN) | payer OTHER ==
[2018-11-17 08:48] VITALS: BMI 37.7
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
[2018-11-17] MEDS ORDERED: MAGNESIUM CITRATE 300 ML BOTTLE PO PRN (09:20)
[2018-11-17] MEDS ORDERED: METHOCARBAMOL 500 MG TABLET PO PRN (09:20)
[2018-11-17] MEDS ORDERED: MENTHOL/PHENOL 1 EACH UD MM PRN (09:20)
[2018-11-17] MEDS ORDERED: IBUPROFEN 400 MG TABLET (FP) PO PRN (09:20)
[2018-11-17] MEDS ORDERED: hydrOXYzine PAMOATE 25 MG CAPSULE (FP) PO PRN (09:20)
[2018-11-17] MEDS ORDERED: MAGNESIUM HYDROX 2400MG/30ML ORAL SUSPENSION 30 ML CUP PO PRN (09:20)
[2018-11-17] MEDS ORDERED: MELATONIN 5 MG TABLETS PO PRN (09:20)
[2018-11-17] MEDS ORDERED: ACETAMINOPHEN 325 MG TABLET (FP) PO PRN ×2 (09:20)
[2018-11-17] MEDS ORDERED: BISMUTH SUBSALICYLATE 524 MG/30 ML UD PO PRN (09:20)
[2018-11-17] MEDS ORDERED: MAG HYDROX/AL HYDROX/SIMETH 30 ML UNIT-DOSE CUP PO PRN (09:20)
[2018-11-17] MEDS ORDERED: ALBUTEROL SO4 8 GM HFA INHALER IH PRN (09:25)
[2018-11-17] MEDS: DIVALPROEX SODIUM 500 MG TABLET E.C. PO SCH ×2 (10:23→22:10)
[2018-11-17] MEDS: chlordiazePOXIDE HCL 25 MG CAPSULE PO PRN (10:23)
[2018-11-17] MEDS: PRENATAL VITAMINS W/ FOLIC ACID TABLET (FP) PO SCH (10:23)
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
[2018-11-17 14:50] LABS: HEMATOCRIT 39.3 % (35.4-49); HEMOGLOBIN 13.2 GM/dL (11.7-16.9); MCHC 33.7 g/dl (32.0-35.9); MEAN PLT VOLUME 8.3 fl (7.5-11.1); PLATELET COUNT 257 K/MM3 (134-434); RBC 4.57 M/mm3 (4.00-5.60); RDW 15.5 % (11.9-15.9)
[2018-11-17 15:03] LABS: ALBUMIN 3.7 g/dl (3.4-5.0); BILIRUBIN,TOTAL 0.4 mg/dL (0.2-1); BLOOD UREA NITROGEN 17.2 mg/dL (7-18); CALCIUM 8.8 mg/dL (8.5-10.1); POTASSIUM 3.6 mmol/L (3.5-5.1); TOT PROT 7.8 g/dl (6.4-8.2)
[2018-11-17] MEDS: chlordiazePOXIDE HCL 25 MG CAPSULE PO SCH ×2 (17:17→22:10)
[2018-11-17] MEDS: QUEtiapine FUMARATE 100 MG TABLET (FP) PO SCH (22:10)
[2018-11-17] MEDS: THIAMINE HCL 100 MG TABLET (FP) PO SCH (22:10)
[2018-11-18] MEDS: chlordiazePOXIDE HCL 25 MG CAPSULE PO SCH ×4 (06:36→23:13)
[2018-11-18] MEDS: PRENATAL VITAMINS W/ FOLIC ACID TABLET (FP) PO SCH (10:52)
[2018-11-18] MEDS: DIVALPROEX SODIUM 500 MG TABLET E.C. PO SCH ×2 (10:52→23:12)
--- NOTE | 2018-11-18 11:27 | PN ---
S CIWA - CIWA Score Nausea/Vomitin-No Nausea/No Vomiting Muscle Tremors: 2 Anxiety: 3 Agitation: 0-Normal Activity Paroxysmal Sweats: 3 Orientation: 0-Oriented Tacttile Disturbances: 0-None Auditory Disturbances: 0-None Visual Disturbances: 0-None Headache: 2-Mild CIWA-Ar Total Score: 10 S Progress Note (SOAP) Subjective: c/o headache, shakes, and anxiety. Objective: 11/18/18 11:25 Vital Signs 11/18/18 11/18/18 11/18/18 04:13 06:00 09:53 Temperature 97.3 F L 98.2 F Pulse Rate 59 L 63 Respiratory 18 18 18 Rate Blood Pressure 133/74 121/75 Lab Results WBC 7.0 K/mm3 (4.0-10.0) 11/17/18 09:40 RBC 4.57 M/mm3 (4.00-5.60) 11/17/18 09:40 Hgb 13.2 GM/dL (11.7-16.9) 11/17/18 09:40 Hct 39.3 % (35.4-49) 11/17/18 09:40 MCV 86.0 fl (80-96) 11/17/18 09:40 MCHC 33.7 g/dl (32.0-35.9) 11/17/18 09:40 RDW 15.5 % (11.9-15.9) 11/17/18 09:40 Plt Count 257 K/MM3 (134-434) 11/17/18 09:40 Sodium 141 mmol/L (136-145) 11/17/18 09:40 Potassium 3.6 mmol/L (3.5-5.1) 11/17/18 09:40 Chloride 104 mmol/L (98-107) 11/17/18 09:40 Carbon Dioxide 26 mmol/L (21-32) 11/17/18 09:40 Anion Gap 11 MMOL/L (8-16) 11/17/18 09:40 BUN 17.2 mg/dL (7-18) 11/17/18 09:40 Creatinine 1.0 mg/dL (0.55-1.3) 11/17/18 09:40 Random Glucose 83 mg/dL (74-106) 11/17/18 09:40 Calcium 8.8 mg/dL (8.5-10.1) 11/17/18 09:40 Labs noted. Assessment: AOX3, in no acute respiratory distress. Full ROM, ambulating in the unit. Withdrawal symptoms. Plan: continue detox.
[2018-11-18] MEDS: QUEtiapine FUMARATE 100 MG TABLET (FP) PO SCH (23:12)
[2018-11-18] MEDS: THIAMINE HCL 100 MG TABLET (FP) PO SCH (23:13)
[2018-11-19] MEDS: chlordiazePOXIDE HCL 25 MG CAPSULE PO PRN (05:31)
[2018-11-19] MEDS: chlordiazePOXIDE HCL 25 MG CAPSULE PO SCH ×2 (05:32→10:09)
[2018-11-19 06:48] VITALS: BP 132/69; PULSE 57; TEMP 97.3
[2018-11-19] MEDS: DIVALPROEX SODIUM 500 MG TABLET E.C. PO SCH (10:09)
[2018-11-19] MEDS: PRENATAL VITAMINS W/ FOLIC ACID TABLET (FP) PO SCH (10:09)
--- NOTE | 2018-11-19 15:01 | DS ---
[facility] Detox Discharge Summary Admission Date: 11/17/18 - History Present History: Alcohol Dependence, Cocaine Dependence Additional Comments: Patient demanded to leave AMA without any reason. Patient encouraged to complete detox but refused. Patient instructed to call [phone] if feeling sick or withdrawal sxs and to see his PCP within 3 days. Patient left in stable condition. Pertinent Past History: Alcohol dependence Cocaine abuse Asthma - Physical Exam Results Vital Signs: Vital Signs Temperature 97.3 F L 11/19/18 06:00 Pulse Rate 57 L 11/19/18 06:00 Respiratory Rate 18 11/19/18 06:00 Blood Pressure 132/69 11/19/18 06:00 O2 Sat by Pulse Oximetry (%) Pertinent Admission Physical Exam Findings: Withdrawal sxs Laboratory Tests 11/17/18 11/17/18 11/17/18 09:40 09:40 09:40 WBC 7.0 RBC 4.57 Hgb 13.2 Hct 39.3 MCV 86.0 MCH 29.0 MCHC 33.7 RDW 15.5 Plt Count 257 MPV 8.3 Sodium 141 Potassium 3.6 Chloride 104 Carbon Dioxide 26 Anion Gap 11 BUN 17.2 Creatinine 1.0 Est GFR (CKD-EPI)AfAm 104.15 Est GFR (CKD-EPI)NonAf 89.86 Random Glucose 83 Calcium 8.8 Total Bilirubin 0.4 AST 57 H ALT 38 Alkaline Phosphatase 96 Total Protein 7.8 Albumin 3.7 Valproic Acid RPR Titer Nonreactive 11/17/18 11:35 WBC RBC Hgb Hct MCV MCH MCHC RDW Plt Count MPV Sodium Potassium Chloride Carbon Dioxide Anion Gap BUN Creatinine Est GFR (CKD-EPI)AfAm Est GFR (CKD-EPI)NonAf Random Glucose Calcium Total Bilirubin AST ALT Alkaline Phosphatase Total Protein Albumin Valproic Acid 19.0 L RPR Titer Labs reviewed - Medication Discharge Medications: Ambulatory Orders Albuterol Sulfate Inhaler - [Ventolin HFA Inhaler -] 1 - 2 inh PO QID PRN #1 inhaler 07/20/17 Quetiapine Fumarate [Seroquel] 100 mg PO HS #30 tablet 07/20/17 Divalproex [Depakote -] 500 mg PO BID 11/17/18 - Diagnosis (1) Cocaine use disorder Status: Chronic (2) Alcohol dependence with uncomplicated withdrawal Status: Acute (3) Asthma Status: Chronic Qualifiers: Asthma severity: mild Asthma persistence: intermittent Asthma complication type: uncomplicated Qualified Code(s): J45.20 - Mild intermittent asthma, uncomplicated (4) Obesity Status: Chronic Qualifiers: Obesity type: due to excess calories - AMA Did Patient Leave Against Medical Advice: Yes (Instructed to call 911 STAT if feels sick/withdrawal sxs)
[2018-11-20] MEDS ORDERED: chlordiazePOXIDE HCL 10 MG CAPSULE PO PRN
[2018-11-20] MEDS ORDERED: chlordiazePOXIDE HCL 10 MG CAPSULE PO SCH (05:00)
[2018-11-21] MEDS ORDERED: chlordiazePOXIDE HCL 10 MG CAPSULE PO SCH (05:00)
[2018-11-22] MEDS ORDERED: chlordiazePOXIDE HCL 10 MG CAPSULE PO ONE (05:00)
== END 2018-11-19 12:10 | disposition left against medical advice (07) | DRG 770 ==
LOC: YASAS 08:07 → Y6N 09:23
PROVIDERS: ADMIT Surgery; ATTEND Surgery
PROC: HZ2ZZZZ Detoxification Services for Substance Abuse Treatment (ICD-10-PCS; principal; 2018-11-17)
DX: F10.230 Alcohol dependence with withdrawal, uncomplicated (principal); F14.20 Cocaine dependence, uncomplicated; F19.24 Other psychoactive substance dependence with psychoactive substance-induced mood disorder; F19.282 Other psychoactive substance dependence with psychoactive substance-induced sleep disorder; F10.282 Alcohol dependence with alcohol-induced sleep disorder; F32.9 Major depressive disorder, single episode, unspecified; J45.20 Mild intermittent asthma, uncomplicated; E66.9 Obesity, unspecified; Z68.37 Body mass index [BMI] 37.0-37.9, adult; Z87.828 Personal history of other (healed) physical injury and trauma
CPT/HCPCS: 36415; 80053; 80164; 85027; 86480; 86593

== ENCOUNTER 2019-12-04 19:58 | Inpatient (IN) | payer OTHER ==
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
[2019-12-04 21:03] VITALS: BMI 38.0
[2019-12-04] MEDS ORDERED: MAGNESIUM CITRATE 300 ML BOTTLE PO PRN (21:16)
[2019-12-04] MEDS ORDERED: IBUPROFEN 400 MG TABLET (FP) PO PRN (21:16)
[2019-12-04] MEDS ORDERED: ACETAMINOPHEN 325 MG TABLET (FP) PO PRN ×2 (21:16)
[2019-12-04] MEDS ORDERED: ONDANSETRON *ODT* 4 MG TABLET SL PRN (21:16)
[2019-12-04] MEDS ORDERED: BISMUTH SUBSALICYLATE 524 MG/30 ML UD PO PRN (21:16)
[2019-12-04] MEDS ORDERED: MAGNESIUM HYDROX 2400MG/30ML ORAL SUSPENSION 30 ML CUP PO PRN (21:16)
[2019-12-04] MEDS ORDERED: METHOCARBAMOL 500 MG TABLET PO PRN (21:16)
[2019-12-04] MEDS ORDERED: MAG HYDROX/AL HYDROX/SIMETH 30 ML UNIT-DOSE CUP PO PRN (21:16)
[2019-12-04] MEDS ORDERED: hydrOXYzine PAMOATE 25 MG CAPSULE (FP) PO PRN (21:16)
[2019-12-04] MEDS ORDERED: MENTHOL/PHENOL 1 EACH UD MM PRN (21:16)
[2019-12-04] MEDS ORDERED: chlordiazePOXIDE HCL 25 MG CAPSULE PO PRN (21:16)
[2019-12-04] MEDS ORDERED: ALBUTEROL SO4 HFA INHALER IH PRN (21:19)
[2019-12-04] MEDS: THIAMINE HCL 100 MG TABLET (FP) PO SCH (22:30)
[2019-12-04] MEDS: chlordiazePOXIDE HCL 25 MG CAPSULE PO SCH (22:30)
[2019-12-04] MEDS: MELATONIN 5 MG TABLETS PO SCH (22:30)
[2019-12-05] MEDS: chlordiazePOXIDE HCL 25 MG CAPSULE PO SCH ×4 (05:22→22:20)
[2019-12-05] MEDS: PRENATAL VITAMINS W/ FOLIC ACID TABLET (FP) PO SCH (10:13)
[2019-12-05 10:35] LABS: HEMATOCRIT 43.1 % (35.4-49); HEMOGLOBIN 14.3 GM/dL (11.7-16.9); MCH 29.1 pg (25.7-33.7); MCHC 33.1 g/dl (32.0-35.9); MEAN CELL VOLUME 87.7 fl (80-96); MEAN PLT VOLUME 8.6 fl (7.5-11.1); PLATELET COUNT 231 K/MM3 (134-434); RBC 4.91 M/mm3 (4.00-5.60); RDW 15.8 % (11.9-15.9); WHITE BLOOD COUNT 4.3 K/mm3 (4.0-10.0)
--- NOTE | 2019-12-05 10:35 | PN ---
S CIWA - CIWA Score Nausea/Vomitin-Mild Nausea/No Vomiting Muscle Tremors: 2 Anxiety: 2 Agitation: 2 Paroxysmal Sweats: No Perspiration Orientation: 0-Oriented Tacttile Disturbances: 0-None Auditory Disturbances: 0-None Visual Disturbances: 0-None Headache: 1-Very Mild CIWA-Ar Total Score: 8 BHS Progress Note (SOAP) Subjective: alert,irritable,anxious,interrupted sleep,tremor,aching pain Objective: 12/05/19 10:33 Vital Signs Temperature 97.7 F 12/05/19 08:39 Pulse Rate 55 L 12/05/19 08:39 Respiratory Rate 18 12/05/19 08:39 Blood Pressure 95/60 12/05/19 08:39 O2 Sat by Pulse Oximetry (%) 96 12/05/19 06:24 12/05/19 10:34 labs pending Assessment: 12/05/19 10:34 withdrawal symptom Plan: continue detox librium regimen
[2019-12-05 10:42] LABS: ALBUMIN 3.2 g/dl (3.4-5.0); BILIRUBIN,TOTAL 0.8 mg/dL (0.2-1); BLOOD UREA NITROGEN 14.4 mg/dL (7-18); CALCIUM 8.6 mg/dL (8.5-10.1); CREATININE 1.2 mg/dL (0.55-1.3); POTASSIUM 3.6 mmol/L (3.5-5.1)
--- NOTE | 2019-12-05 12:42 | CONSULT ---
[facility] Psychiatric Consult - Data Date of interview: 12/05/19 Admission source: [facility] Identifying data: Patient is approached for psychatric evaluation. Mr Garcia declines. Nursing staff is made aware. Patient is found resting in bed. Comfortably. No complaints offered.
--- NOTE | 2019-12-05 13:32 | EKG ---
Test Reason : Blood Pressure : / mmHG Vent. Rate : 047 BPM Atrial Rate : 047 BPM P-R Int : 224 ms QRS Dur : 084 ms QT Int : 452 ms P-R-T Axes : 035 034 011 degrees QTc Int : 400 ms SINUS BRADYCARDIA WITH 1ST DEGREE A-V BLOCK NONSPECIFIC ST AND T WAVE ABNORMALITY ABNORMAL ECG Confirmed by MD RED, MEG ([id number]) on 12/05/2019 1:32:04 PM Referred By: Confirmed By:MEG MOON MD
[2019-12-05] MEDS: MELATONIN 5 MG TABLETS PO SCH (22:20)
[2019-12-05] MEDS: THIAMINE HCL 100 MG TABLET (FP) PO SCH (22:20)
[2019-12-06] MEDS: chlordiazePOXIDE HCL 25 MG CAPSULE PO SCH ×3 (05:25→18:05)
[2019-12-06] MEDS: PRENATAL VITAMINS W/ FOLIC ACID TABLET (FP) PO SCH (10:20)
--- NOTE | 2019-12-06 12:40 | EKG ---
Test Reason : Blood Pressure : / mmHG Vent. Rate : 052 BPM Atrial Rate : 052 BPM P-R Int : 200 ms QRS Dur : 086 ms QT Int : 406 ms P-R-T Axes : 012 039 015 degrees QTc Int : 377 ms SINUS BRADYCARDIA NONSPECIFIC ST AND T WAVE ABNORMALITY ABNORMAL ECG WHEN COMPARED WITH ECG OF 04-DEC-2019 20:49, NO SIGNIFICANT CHANGE WAS FOUND Confirmed by JULIET LOPEZ MD ([id number]) on 12/06/2019 12:40:18 PM Referred By: Confirmed By:JULIET LOPEZ MD
--- NOTE | 2019-12-06 12:55 | PN ---
S CIWA - CIWA Score Nausea/Vomitin Muscle Tremors: 3 Anxiety: 2 Agitation: 2 Paroxysmal Sweats: No Perspiration Orientation: 0-Oriented Tacttile Disturbances: 0-None Auditory Disturbances: 0-None Visual Disturbances: 0-None Headache: 1-Very Mild CIWA-Ar Total Score: 10 S Progress Note (SOAP) Subjective: alert,irritable,anxious,interrupted sleep,tremor,aching pain in the body and back Objective: 12/06/19 12:56 Vital Signs Temperature 97.5 F L 12/06/19 08:50 Pulse Rate 51 L 12/06/19 08:50 Respiratory Rate 16 12/06/19 08:50 Blood Pressure 116/70 12/06/19 08:50 O2 Sat by Pulse Oximetry (%) 97 12/06/19 06:21 12/06/19 12:56 Laboratory Last Values WBC 4.3 K/mm3 (4.0-10.0) 12/05/19 07:50 RBC 4.91 M/mm3 (4.00-5.60) 12/05/19 07:50 Hgb 14.3 GM/dL (11.7-16.9) 12/05/19 07:50 Hct 43.1 % (35.4-49) 12/05/19 07:50 MCV 87.7 fl (80-96) 12/05/19 07:50 MCH 29.1 pg (25.7-33.7) 12/05/19 07:50 MCHC 33.1 g/dl (32.0-35.9) 12/05/19 07:50 RDW 15.8 % (11.9-15.9) 12/05/19 07:50 Plt Count 231 K/MM3 (134-434) 12/05/19 07:50 MPV 8.6 fl (7.5-11.1) 12/05/19 07:50 Sodium 142 mmol/L (136-145) 12/05/19 07:50 Potassium 3.6 mmol/L (3.5-5.1) 12/05/19 07:50 Chloride 106 mmol/L (98-107) 12/05/19 07:50 Carbon Dioxide 29 mmol/L (21-32) 12/05/19 07:50 Anion Gap 7 MMOL/L (8-16) L 12/05/19 07:50 BUN 14.4 mg/dL (7-18) 12/05/19 07:50 Creatinine 1.2 mg/dL (0.55-1.3) 12/05/19 07:50 Est GFR (CKD-EPI)AfAm 82.96 12/05/19 07:50 Est GFR (CKD-EPI)NonAf 71.58 12/05/19 07:50 Random Glucose 59 mg/dL (74-106) L 12/05/19 07:50 Calcium 8.6 mg/dL (8.5-10.1) 12/05/19 07:50 Total Bilirubin 0.8 mg/dL (0.2-1) 12/05/19 07:50 AST 46 U/L (15-37) H 12/05/19 07:50 ALT 57 U/L (13-61) 12/05/19 07:50 Alkaline Phosphatase 101 U/L (45-117) 12/05/19 07:50 Total Protein 7.0 g/dl (6.4-8.2) 12/05/19 07:50 Albumin 3.2 g/dl (3.4-5.0) L 12/05/19 07:50 Syphilis Serology Non-reactive (NONREACTIVE) 12/05/19 07:50 COVID-19 ([facility]) Not detected (Not Detected) 12/04/19 09:50 Assessment: 12/06/19 12:57 withdrawal symptom Plan: continue detox,bgm is 59 ,encourage fluid and eating,bgm x 1,librium regimen
[2019-12-06 17:23] VITALS: BP 136/87; PULSE 64; TEMP 97.3
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
[2019-12-07] MEDS ORDERED: chlordiazePOXIDE HCL 10 MG CAPSULE PO PRN
[2019-12-07] MEDS ORDERED: chlordiazePOXIDE HCL 10 MG CAPSULE PO SCH (05:00)
[2019-12-08] MEDS ORDERED: chlordiazePOXIDE HCL 10 MG CAPSULE PO SCH (05:00)
[2019-12-09] MEDS ORDERED: chlordiazePOXIDE HCL 10 MG CAPSULE PO ONE (05:00)
== END 2019-12-06 18:20 | disposition left against medical advice (07) | DRG 770 ==
LOC: YASAS 19:58 → Y3N 20:55
PROVIDERS: ADMIT Allergy & Immunology; ATTEND Allergy & Immunology
PROC: HZ2ZZZZ Detoxification Services for Substance Abuse Treatment (ICD-10-PCS; principal; 2019-12-04)
DX: F10.230 Alcohol dependence with withdrawal, uncomplicated (principal); F14.20 Cocaine dependence, uncomplicated; F13.20 Sedative, hypnotic or anxiolytic dependence, uncomplicated; F17.211 Nicotine dependence, cigarettes, in remission; F32.9 Major depressive disorder, single episode, unspecified; J45.20 Mild intermittent asthma, uncomplicated; Z87.828 Personal history of other (healed) physical injury and trauma; Z91.5 Personal history of self-harm
CPT/HCPCS: 36415; 80053; 82962; 85027; 86780; 93005; 93010; U0003

== ENCOUNTER 2021-07-12 15:49 | Emergency (ER) | payer OTHER ==
[2021-07-12 16:02] VITALS: BP 117/65; PULSE 63; TEMP 97.6; BMI 39.1
[2021-07-12] MEDS ORDERED: KETOROLAC TROMETHAMINE 30 MG/1 ML VIAL IM ONE (16:13)
[2021-07-12] MEDS ORDERED: LIDOCAINE 5% TOPICAL PATCH TP ONE (16:18)
[2021-07-12] MEDS ORDERED: KETOROLAC TROMETHAMINE 30 MG/1 ML VIAL ONE (16:28)
[2021-07-12] MEDS ORDERED: LIDOCAINE 5% TOPICAL PATCH ONE (16:28)
[2021-07-12] MEDS ORDERED: LIDOCAINE PATCH REMOVAL MC SCH (22:00)
== END 2021-07-12 17:55 | disposition home or self-care (01) ==
LOC: JER 15:49 → JERFT 15:49
PROC: 3E023GC Introduction of Other Therapeutic Substance into Muscle, Percutaneous Approach (ICD-10-PCS; principal; 2021-07-12)
DX: S39.012A Strain of muscle, fascia and tendon of lower back, initial encounter (principal); X50.0XXA Overexertion from strenuous movement or load, initial encounter
CPT/HCPCS: 72050-TC-FY; 72100-TC-FY; 73110-TC-LT-FY; 73130-TC-LT-FY; 99284-25

== ENCOUNTER 2022-02-19 18:35 | Inpatient (IN) | payer OTHER ==
[2022-02-19 19:38] VITALS: BMI 34.2
[2022-02-19] MEDS ORDERED: METHOCARBAMOL 500 MG TABLET PO PRN (20:33)
[2022-02-19] MEDS ORDERED: LOPERAMIDE HCL 2 MG CAPSULE PO PRN (20:33)
[2022-02-19] MEDS ORDERED: IBUPROFEN 400 MG TABLET (FP) PO PRN (20:33)
[2022-02-19] MEDS ORDERED: MAGNESIUM HYDROX 2400MG/30ML ORAL SUSPENSION 30 ML CUP PO PRN (20:33)
[2022-02-19] MEDS ORDERED: ONDANSETRON *ODT* 4 MG TABLET SL PRN (20:33)
[2022-02-19] MEDS ORDERED: POLYETHYLENE GLYCOL (HEALTHYLAX) 3350 17 GM PACKET PO PRN (20:33)
[2022-02-19] MEDS ORDERED: ACETAMINOPHEN 325 MG TABLET (FP) PO PRN ×2 (20:33)
[2022-02-19] MEDS ORDERED: guaiFENesin 200 MG/10 ML 10 ML UNIT-DOSE CUPS PO PRN (20:33)
[2022-02-19] MEDS ORDERED: hydrOXYzine PAMOATE 25 MG CAPSULE (FP) PO PRN (20:33)
[2022-02-19] MEDS ORDERED: DICYCLOMINE HCL 10 MG CAPSULE PO PRN (20:33)
[2022-02-19] MEDS ORDERED: BISMUTH SUBSALICYLATE 524 MG/30 ML PO PRN (20:33)
[2022-02-19] MEDS ORDERED: MAG HYDROX/AL HYDROX/SIMETH 30 ML UNIT-DOSE CUP PO PRN (20:33)
[2022-02-19] MEDS ORDERED: BENZOCAINE/MENTHOL (CHLORASEPTIC ) LOZENGE MM PRN (20:33)
[2022-02-19] MEDS ORDERED: P-EPHED 60MG/TRIPROLIDI 2.5MG TABLET PO PRN (20:33)
[2022-02-19] MEDS ORDERED: IBUPROFEN 600 MG TABLET (FP) PO PRN (20:33)
[2022-02-19] MEDS: THIAMINE HCL 100 MG TABLET (FP) PO SCH (22:00)
[2022-02-19] MEDS: MELATONIN 5 MG TABLETS PO PRN (22:00)
[2022-02-20 09:04] LABS: HEMATOCRIT 43.2 % (35.4-49); HEMOGLOBIN 14.2 GM/dL (11.7-16.9); MCH 28.2 pg (25.7-33.7); MCHC 32.8 g/dl (32.0-35.9); MEAN PLT VOLUME 8.3 fl (7.5-11.1); PLATELET COUNT 239 10^3/uL (134-434); RBC 5.02 M/mm3 (4.00-5.60); RDW 15.1 % (11.9-15.9); WHITE BLOOD COUNT 4.7 K/mm3 (4.0-10.0)
[2022-02-20 09:08] LABS: CALCIUM 8.7 mg/dL (8.5-10.1)
[2022-02-20 09:09] LABS: ALBUMIN 3.2 g/dl (3.4-5.0); BLOOD UREA NITROGEN 18.4 mg/dL (7-18)
[2022-02-20 09:12] LABS: CREATININE 1.3 mg/dL (0.55-1.3)
[2022-02-20 09:13] LABS: TOT PROT 6.7 g/dl (6.4-8.2)
[2022-02-20] MEDS ORDERED: PRENATAL VITAMINS W/ FOLIC ACID TABLET (FP) PO SCH (10:00)
[2022-02-20 17:02] VITALS: RESP 18
[2022-02-20] MEDS: MELATONIN 5 MG TABLETS PO PRN (22:09)
[2022-02-20] MEDS: THIAMINE HCL 100 MG TABLET (FP) PO SCH (22:09)
[2022-02-21 09:27] VITALS: BP 114/65; PULSE 60; TEMP 97.1
== END 2022-02-21 10:20 | disposition home or self-care (01) | DRG 774 ==
LOC: YASAS 18:35 → Y3N 21:38
PROVIDERS: ADMIT Allergy & Immunology; ATTEND Surgery
PROC: HZ2ZZZZ Detoxification Services for Substance Abuse Treatment (ICD-10-PCS; principal; 2022-02-19)
DX: F10.230 Alcohol dependence with withdrawal, uncomplicated (principal); F14.20 Cocaine dependence, uncomplicated; F16.20 Hallucinogen dependence, uncomplicated; F19.24 Other psychoactive substance dependence with psychoactive substance-induced mood disorder; F32.A Depression, unspecified; J45.20 Mild intermittent asthma, uncomplicated; Z87.19 Personal history of other diseases of the digestive system
CPT/HCPCS: 36415; 80053; 85027; 86780; 87811; C9803-CS; U0003; U0005

== ENCOUNTER 2022-06-22 08:42 | Inpatient (IN) | payer OTHER ==
[2022-06-22 09:04] VITALS: BMI 36.8
[2022-06-22] MEDS ORDERED: DICYCLOMINE HCL 10 MG CAPSULE PO PRN (11:16)
[2022-06-22] MEDS ORDERED: IBUPROFEN 600 MG TABLET (FP) PO PRN (11:16)
[2022-06-22] MEDS ORDERED: MAG HYDROX/AL HYDROX/SIMETH 30 ML UNIT-DOSE CUP PO PRN (11:16)
[2022-06-22] MEDS ORDERED: ONDANSETRON *ODT* 4 MG TABLET SL PRN (11:16)
[2022-06-22] MEDS ORDERED: NALOXONE HCL (KLOXXADO) 8 MG SPRAY NS PRN (11:16)
[2022-06-22] MEDS ORDERED: MAGNESIUM HYDROX 2400MG/30ML ORAL SUSPENSION 30 ML CUP PO PRN (11:16)
[2022-06-22] MEDS ORDERED: ACETAMINOPHEN 325 MG TABLET (FP) PO PRN (11:16)
[2022-06-22] MEDS ORDERED: BISMUTH SUBSALICYLATE 262 MG/15 ML BTL PO PRN (11:16)
[2022-06-22] MEDS ORDERED: guaiFENesin 600 MG TABLET.ER (FP) PO PRN (11:16)
[2022-06-22] MEDS ORDERED: hydrOXYzine PAMOATE 25 MG CAPSULE (FP) PO PRN (11:16)
[2022-06-22] MEDS ORDERED: BENZONATATE 200 MG CAPSULE PO PRN (11:16)
[2022-06-22] MEDS ORDERED: NALOXONE HCL 0.4 MG/ML VIAL IM PRN (11:16)
[2022-06-22] MEDS ORDERED: LOPERAMIDE HCL 2 MG CAPSULE PO PRN (11:16)
[2022-06-22] MEDS ORDERED: METHOCARBAMOL 500 MG TABLET PO PRN (11:16)
[2022-06-22] MEDS ORDERED: POLYETHYLENE GLYCOL (HEALTHYLAX) 3350 17 GM PACKET PO PRN (11:16)
[2022-06-22] MEDS ORDERED: IBUPROFEN 400 MG TABLET (FP) PO PRN (11:16)
[2022-06-22] MEDS ORDERED: NICOTINE 10 MG CARTRIDGE (INHALER) IH PRN (11:16)
[2022-06-22] MEDS ORDERED: BENZOCAINE/MENTHOL (CHLORASEPTIC ) LOZENGE MM PRN (11:16)
[2022-06-22 13:46] LABS: HEMATOCRIT 39.9 % (35.4-49); HEMOGLOBIN 13.7 GM/dL (11.7-16.9); MCH 28.9 pg (25.7-33.7); MCHC 34.3 g/dl (32.0-35.9); MEAN CELL VOLUME 84.3 fl (80-96); MEAN PLT VOLUME 7.9 fl (7.5-11.1); PLATELET COUNT 222 10^3/uL (134-434); RBC 4.73 M/mm3 (4.00-5.60); RDW 14.2 % (11.9-15.9); WHITE BLOOD COUNT 4.2 K/mm3 (4.0-10.0)
[2022-06-22 14:05] LABS: CALCIUM 9.1 mg/dL (8.5-10.1)
[2022-06-22 14:06] LABS: BLOOD UREA NITROGEN 11.8 mg/dL (7-18)
[2022-06-22 14:08] LABS: CREATININE 1.1 mg/dL (0.55-1.3)
[2022-06-22 14:10] LABS: BILIRUBIN,TOTAL 1.1 mg/dL (0.2-1)
[2022-06-22] MEDS ORDERED: QUEtiapine FUMARATE 100 MG TABLET (FP) PO SCH (22:00)
[2022-06-22] MEDS ORDERED: THIAMINE HCL 100 MG TABLET (FP) PO SCH (22:00)
[2022-06-22] MEDS ORDERED: MELATONIN 5 MG TABLETS PO SCH (22:00)
[2022-06-23] MEDS ORDERED: PRENATAL VITAMINS W/ FOLIC ACID TABLET (FP) PO SCH (10:00)
[2022-06-23 13:55] VITALS: BP 100/62; PULSE 64; RESP 17; TEMP 97.1
[2022-06-23] MEDS ORDERED: ALBUTEROL SO4 HFA INHALER IH PRN (14:05)
== END 2022-06-23 13:49 | disposition other institution (70) | DRG 774 ==
LOC: YASAS 08:42 → UNDOADMIN 11:21 → Y3N 11:21
PROVIDERS: ADMIT Allergy & Immunology; ATTEND Surgery
PROC: HZ2ZZZZ Detoxification Services for Substance Abuse Treatment (ICD-10-PCS; principal; 2022-06-22)
DX: F10.230 Alcohol dependence with withdrawal, uncomplicated (principal); F14.20 Cocaine dependence, uncomplicated; F19.24 Other psychoactive substance dependence with psychoactive substance-induced mood disorder; F41.8 Other specified anxiety disorders; F32.A Depression, unspecified; G47.00 Insomnia, unspecified; E66.9 Obesity, unspecified; Z68.36 Body mass index [BMI] 36.0-36.9, adult; Z56.0 Unemployment, unspecified; Z59.01 Sheltered homelessness
CPT/HCPCS: 36415; 80053; 82140; 85027; 86780; C9803-CS; U0003; U0005

== ENCOUNTER 2022-06-23 13:58 | Inpatient (IN) | payer OTHER ==
[2022-06-23 14:50] VITALS: RESP 18
[2022-06-23] MEDS ORDERED: METHOCARBAMOL 500 MG TABLET PO PRN (14:50)
[2022-06-23] MEDS ORDERED: BENZONATATE 200 MG CAPSULE PO PRN (14:50)
[2022-06-23] MEDS ORDERED: MAG HYDROX/AL HYDROX/SIMETH 30 ML UNIT-DOSE CUP PO PRN (14:50)
[2022-06-23] MEDS ORDERED: POLYETHYLENE GLYCOL (HEALTHYLAX) 3350 17 GM PACKET PO PRN (14:50)
[2022-06-23] MEDS ORDERED: hydrOXYzine PAMOATE 25 MG CAPSULE (FP) PO PRN (14:50)
[2022-06-23] MEDS ORDERED: ACETAMINOPHEN 325 MG TABLET (FP) PO PRN (14:50)
[2022-06-23] MEDS ORDERED: MAGNESIUM HYDROX 2400MG/30ML ORAL SUSPENSION 30 ML CUP PO PRN (14:50)
[2022-06-23] MEDS ORDERED: BENZOCAINE/MENTHOL (CHLORASEPTIC ) LOZENGE MM PRN (14:50)
[2022-06-23] MEDS ORDERED: LOPERAMIDE HCL 2 MG CAPSULE PO PRN (14:50)
[2022-06-23] MEDS ORDERED: guaiFENesin 600 MG TABLET.ER (FP) PO PRN (14:50)
[2022-06-23] MEDS ORDERED: IBUPROFEN 400 MG TABLET (FP) PO PRN (14:50)
[2022-06-23] MEDS ORDERED: NALOXONE HCL 0.4 MG/ML VIAL IVPUSH PRN (14:50)
[2022-06-23] MEDS ORDERED: NALOXONE HCL (KLOXXADO) 8 MG SPRAY NS PRN (14:50)
[2022-06-23] MEDS ORDERED: IBUPROFEN 600 MG TABLET (FP) PO PRN (14:50)
[2022-06-23] MEDS ORDERED: NICOTINE 10 MG CARTRIDGE (INHALER) IH PRN (14:50)
[2022-06-23] MEDS ORDERED: ALBUTEROL SO4 HFA INHALER IH PRN (14:53)
[2022-06-23] MEDS ORDERED: TUBERCULIN PPD 5 TU/0.1ML VIAL ID ONE (15:49)
[2022-06-23] MEDS: QUEtiapine FUMARATE 100 MG TABLET (FP) PO SCH (21:07)
[2022-06-23] MEDS: THIAMINE HCL 100 MG TABLET (FP) PO SCH (21:07)
[2022-06-23] MEDS: MELATONIN 5 MG TABLETS PO SCH (21:07)
[2022-06-23] MEDS: CLOTRIMAZOLE 1% CREAM TP SCH (21:08)
[2022-06-23] MEDS: TOLNAFTATE 1% CREAM 15 GM TUBE TP SCH (21:08)
[2022-06-24] MEDS: PRENATAL VITAMINS W/ FOLIC ACID TABLET (FP) PO SCH (10:01)
[2022-06-24] MEDS: CLOTRIMAZOLE 1% CREAM TP SCH ×2 (10:02→21:25)
[2022-06-24] MEDS: TOLNAFTATE 1% CREAM 15 GM TUBE TP SCH ×4 (10:03→21:26)
[2022-06-24 12:47] LABS: HIV INTERPRETATION NEGATIVE (NEGATIVE)
[2022-06-24] MEDS ORDERED: MINERAL OIL/PETROLAT/WATER TOPICAL CREAM 113 GM JAR TP PRN (12:47)
[2022-06-24] MEDS: COLLOIDAL OATMEAL 1 BAR EACH TP PRN (13:41)
[2022-06-24] MEDS: MELATONIN 5 MG TABLETS PO SCH (21:25)
[2022-06-24] MEDS: THIAMINE HCL 100 MG TABLET (FP) PO SCH (21:25)
[2022-06-24] MEDS: QUEtiapine FUMARATE 100 MG TABLET (FP) PO SCH (21:25)
[2022-06-25] MEDS: TOLNAFTATE 1% CREAM 15 GM TUBE TP SCH ×4 (10:40→21:11)
[2022-06-25] MEDS: CLOTRIMAZOLE 1% CREAM TP SCH ×2 (10:40→21:12)
[2022-06-25] MEDS: PRENATAL VITAMINS W/ FOLIC ACID TABLET (FP) PO SCH (10:40)
[2022-06-25] MEDS: QUEtiapine FUMARATE 100 MG TABLET (FP) PO SCH (21:11)
[2022-06-25] MEDS: THIAMINE HCL 100 MG TABLET (FP) PO SCH (21:11)
[2022-06-25] MEDS: MELATONIN 5 MG TABLETS PO SCH (21:11)
[2022-06-26] MEDS: CLOTRIMAZOLE 1% CREAM TP SCH ×2 (09:58→21:02)
[2022-06-26] MEDS: PRENATAL VITAMINS W/ FOLIC ACID TABLET (FP) PO SCH (09:58)
[2022-06-26] MEDS: TOLNAFTATE 1% CREAM 15 GM TUBE TP SCH ×4 (09:59→21:03)
[2022-06-26] MEDS: MELATONIN 5 MG TABLETS PO SCH (21:02)
[2022-06-26] MEDS: QUEtiapine FUMARATE 100 MG TABLET (FP) PO SCH (21:02)
[2022-06-26] MEDS: THIAMINE HCL 100 MG TABLET (FP) PO SCH (21:02)
[2022-06-27] MEDS: PRENATAL VITAMINS W/ FOLIC ACID TABLET (FP) PO SCH (10:23)
[2022-06-27] MEDS: CLOTRIMAZOLE 1% CREAM TP SCH ×2 (10:23→21:09)
[2022-06-27] MEDS: TOLNAFTATE 1% CREAM 15 GM TUBE TP SCH ×4 (10:24→21:09)
[2022-06-27] MEDS: QUEtiapine FUMARATE 100 MG TABLET (FP) PO SCH (21:08)
[2022-06-27] MEDS: THIAMINE HCL 100 MG TABLET (FP) PO SCH (21:08)
[2022-06-27] MEDS: MELATONIN 5 MG TABLETS PO SCH (21:08)
[2022-06-28] MEDS: TOLNAFTATE 1% CREAM 15 GM TUBE TP SCH ×4 (10:20→21:12)
[2022-06-28] MEDS: CLOTRIMAZOLE 1% CREAM TP SCH ×2 (10:20→21:12)
[2022-06-28] MEDS: PRENATAL VITAMINS W/ FOLIC ACID TABLET (FP) PO SCH (10:21)
[2022-06-28] MEDS: COLLOIDAL OATMEAL 1 BAR EACH TP PRN (19:27)
[2022-06-28] MEDS: THIAMINE HCL 100 MG TABLET (FP) PO SCH (21:12)
[2022-06-28] MEDS: QUEtiapine FUMARATE 100 MG TABLET (FP) PO SCH (21:12)
[2022-06-28] MEDS: MELATONIN 5 MG TABLETS PO SCH (21:12)
[2022-06-29] MEDS: CLOTRIMAZOLE 1% CREAM TP SCH ×2 (10:08→21:16)
[2022-06-29] MEDS: PRENATAL VITAMINS W/ FOLIC ACID TABLET (FP) PO SCH (10:09)
[2022-06-29] MEDS: TOLNAFTATE 1% CREAM 15 GM TUBE TP SCH ×4 (10:09→21:16)
[2022-06-29] MEDS: QUEtiapine FUMARATE 100 MG TABLET (FP) PO SCH (21:16)
[2022-06-29] MEDS: THIAMINE HCL 100 MG TABLET (FP) PO SCH (21:16)
[2022-06-29] MEDS: MELATONIN 5 MG TABLETS PO SCH (21:16)
[2022-06-30] MEDS: PRENATAL VITAMINS W/ FOLIC ACID TABLET (FP) PO SCH (09:38)
[2022-06-30] MEDS: CLOTRIMAZOLE 1% CREAM TP SCH (09:38)
[2022-06-30] MEDS: TOLNAFTATE 1% CREAM 15 GM TUBE TP SCH ×2 (09:38)
[2022-06-30 18:08] VITALS: BP 139/81; PULSE 61; TEMP 98
== END 2022-06-30 23:51 | disposition left against medical advice (07) | DRG 770 ==
LOC: YASAS 13:58 → Y3W 14:01
PROVIDERS: ADMIT Allergy & Immunology; ATTEND Psychiatry & Neurology Pain Medicine
PROC: HZ42ZZZ Group Counseling for Substance Abuse Treatment, Cognitive-Behavioral (ICD-10-PCS; principal; 2022-06-23)
DX: F10.20 Alcohol dependence, uncomplicated (principal); F14.20 Cocaine dependence, uncomplicated; L85.3 Xerosis cutis; Z59.01 Sheltered homelessness; Z56.0 Unemployment, unspecified
CPT/HCPCS: 36415; 86803; 87389

== ENCOUNTER 2023-02-21 21:00 | Inpatient (IN) | payer OTHER ==
[2023-02-21 21:35] VITALS: BMI 36.3
[2023-02-21] MEDS ORDERED: LOPERAMIDE HCL 2 MG CAPSULE PO PRN (23:51)
[2023-02-21] MEDS ORDERED: MAG HYDROX/AL HYDROX/SIMETH 30 ML UNIT-DOSE CUP PO PRN (23:51)
[2023-02-21] MEDS ORDERED: BENZOCAINE/MENTHOL (CHLORASEPTIC ) LOZENGE MM PRN (23:51)
[2023-02-21] MEDS ORDERED: ONDANSETRON *ODT* 4 MG TABLET SL PRN (23:51)
[2023-02-21] MEDS ORDERED: BISMUTH SUBSALICYLATE 524 MG/30 ML PO PRN (23:51)
[2023-02-21] MEDS ORDERED: MAGNESIUM HYDROX 2400MG/30ML ORAL SUSPENSION 30 ML CUP PO PRN (23:51)
[2023-02-21] MEDS ORDERED: BENZONATATE 200 MG CAPSULE PO PRN (23:51)
[2023-02-21] MEDS ORDERED: IBUPROFEN 600 MG TABLET (FP) PO PRN (23:51)
[2023-02-21] MEDS ORDERED: ACETAMINOPHEN 325 MG TABLET (FP) PO PRN (23:51)
[2023-02-21] MEDS ORDERED: hydrOXYzine PAMOATE 25 MG CAPSULE (FP) PO PRN (23:51)
[2023-02-21] MEDS ORDERED: IBUPROFEN 400 MG TABLET (FP) PO PRN (23:51)
[2023-02-21] MEDS ORDERED: NALOXONE HCL (KLOXXADO) 8 MG SPRAY NS PRN (23:51)
[2023-02-21] MEDS ORDERED: NALOXONE HCL 0.4 MG/ML VIAL IM PRN (23:51)
[2023-02-21] MEDS ORDERED: METHOCARBAMOL 500 MG TABLET PO PRN (23:51)
[2023-02-21] MEDS ORDERED: guaiFENesin 600 MG TABLET.ER (FP) PO PRN (23:51)
[2023-02-21] MEDS ORDERED: POLYETHYLENE GLYCOL (HEALTHYLAX) 3350 17 GM PACKET PO PRN (23:51)
[2023-02-22] MEDS ORDERED: diazePAM 5 MG TABLET PO PRN (09:51)
[2023-02-22] MEDS ORDERED: ALBUTEROL SO4 HFA INHALER IH PRN (09:51)
[2023-02-22] MEDS: diazePAM 5 MG TABLET PO SCH ×3 (10:13→22:33)
[2023-02-22] MEDS: PRENATAL VITAMINS W/ FOLIC ACID TABLET (FP) PO SCH (10:13)
[2023-02-22 11:14] LABS: CHLORIDE 105 mmol/L (98-107); POTASSIUM 3.5 mmol/L (3.5-5.1); SODIUM 139 mmol/L (136-145)
[2023-02-22 11:16] LABS: MCH 28.2 pg (25.7-33.7); MCHC 32.6 g/dl (32.0-35.9); MEAN CELL VOLUME 86.3 fl (80-96); MEAN PLT VOLUME 8.4 fl (7.5-11.1); PLATELET COUNT 243 10^3/uL (134-434); RBC 4.64 M/mm3 (4.00-5.60); RDW 14.9 % (11.9-15.9); WHITE BLOOD COUNT 4.9 K/mm3 (4.0-10.0)
[2023-02-22 11:17] LABS: CALCIUM 8.3 mg/dL (8.5-10.1)
[2023-02-22 11:18] LABS: ALBUMIN 3.4 g/dl (3.4-5.0); ANION GAP 7 mmol/L (4-13); BLOOD UREA NITROGEN 17.5 mg/dL (7-18); CO2 27 mmol/L (21-32); GLUCOSE,RANDOM 98 mg/dL (74-106)
[2023-02-22 11:21] LABS: CREATININE 1.2 mg/dL (0.55-1.3); SGOT/AST 36 U/L (15-37); SGPT/ALT 28 U/L (13-61)
[2023-02-22 11:23] LABS: BILIRUBIN,TOTAL 1.2 mg/dL (0.2-1); TOT PROT 6.9 g/dl (6.4-8.2)
[2023-02-22 11:24] LABS: ALK PHOS 103 U/L (45-117)
[2023-02-22 13:42] LABS: HIV INTERPRETATION NEGATIVE (NEGATIVE)
[2023-02-22] MEDS: QUEtiapine FUMARATE 100 MG TABLET (FP) PO SCH (22:33)
[2023-02-22] MEDS: MELATONIN 5 MG TABLETS PO SCH (22:33)
[2023-02-22] MEDS: THIAMINE HCL 100 MG TABLET (FP) PO SCH (22:33)
[2023-02-23] MEDS: diazePAM 5 MG TABLET PO SCH ×4 (05:24→22:10)
[2023-02-23] MEDS: CITALOPRAM HYDROBROMIDE 20 MG TABLET PO SCH (10:10)
[2023-02-23] MEDS: PRENATAL VITAMINS W/ FOLIC ACID TABLET (FP) PO SCH (10:10)
[2023-02-23] MEDS: MELATONIN 5 MG TABLETS PO SCH (22:10)
[2023-02-23] MEDS: THIAMINE HCL 100 MG TABLET (FP) PO SCH (22:10)
[2023-02-23] MEDS: QUEtiapine FUMARATE 100 MG TABLET (FP) PO SCH (22:10)
[2023-02-24] MEDS: diazePAM 5 MG TABLET PO SCH ×3 (05:47→22:26)
[2023-02-24] MEDS: PRENATAL VITAMINS W/ FOLIC ACID TABLET (FP) PO SCH (10:20)
[2023-02-24] MEDS: CITALOPRAM HYDROBROMIDE 20 MG TABLET PO SCH (10:20)
[2023-02-24] MEDS: THIAMINE HCL 100 MG TABLET (FP) PO SCH (22:26)
[2023-02-24] MEDS: QUEtiapine FUMARATE 100 MG TABLET (FP) PO SCH (22:26)
[2023-02-24] MEDS: MELATONIN 5 MG TABLETS PO SCH (22:27)
[2023-02-25] MEDS ORDERED: diazePAM 5 MG TABLET PO SCH (06:00)
[2023-02-25 09:57] VITALS: BP 111/66; PULSE 72; RESP 20; TEMP 97.1
[2023-02-25] MEDS: PRENATAL VITAMINS W/ FOLIC ACID TABLET (FP) PO SCH (10:12)
[2023-02-25] MEDS: CITALOPRAM HYDROBROMIDE 20 MG TABLET PO SCH (10:12)
[2023-02-26] MEDS ORDERED: diazePAM 5 MG TABLET PO ONE (06:00)
== END 2023-02-25 10:29 | disposition home or self-care (01) | DRG 774 ==
LOC: YASAS 21:00 → UNDOADMIN 02-22 01:27 → Y3N 02-22 01:27
PROVIDERS: ADMIT Allergy & Immunology; ATTEND Surgery
PROC: HZ2ZZZZ Detoxification Services for Substance Abuse Treatment (ICD-10-PCS; principal; 2023-02-22)
DX: F10.230 Alcohol dependence with withdrawal, uncomplicated (principal); F14.20 Cocaine dependence, uncomplicated; F10.982 Alcohol use, unspecified with alcohol-induced sleep disorder; F33.9 Major depressive disorder, recurrent, unspecified; J45.20 Mild intermittent asthma, uncomplicated; Z87.891 Personal history of nicotine dependence; Z91.199 Patient's noncompliance with other medical treatment and regimen due to unspecified reason; Z56.0 Unemployment, unspecified; Z59.01 Sheltered homelessness
CPT/HCPCS: 36415; 80053; 80307; 85027; 86780; 87389; 87635; 87811